=== PATIENT | male | born 1945 | race Caucasian/White ===

== ENCOUNTER 2018-09-15 15:32 | Inpatient (IN) | payer MEDICARE, OTHER ==
[~2018-09-15] VITALS: Ht 165.1 cm; Wt 92.0 kg
[2018-09-15 15:44] VITALS: Ht 165.1 cm; Wt 92.0 kg
[2018-09-15] MEDS ORDERED: ALBUTEROL 0.5% (NEB) 2.5 MG/0.5 ML AMP INH STA (15:45)
[2018-09-15] MEDS ORDERED: IPRATROPIUM (NEB) 0.5 MG/2.5 ML AMP INH STA (15:45)
[2018-09-15] MEDS ORDERED: ASPIRIN 81 MG TAB PO STA (15:45)
[2018-09-15] MEDS ORDERED: TAMS-14 PO (15:59)
[2018-09-15] MEDS ORDERED: LISI40TA3 PO (15:59)
[2018-09-15] MEDS ORDERED: SITA100T11 PO (16:00)
[2018-09-15] MEDS ORDERED: VENL50TA2 PO (16:01)
[2018-09-15] MEDS ORDERED: FURO20TA3 PO (16:01)
[2018-09-15] MEDS ORDERED: ATOR20TA38 PO (16:01)
[2018-09-15] MEDS ORDERED: LEVA15HF6 INH (16:02)
--- NOTE | 2018-09-15 17:25 | ERD ---
ER Documentation Chief Complaint Chief Complaint SOB HPI This is a 72-year-old male with a known history of congestive heart failure on 40 mg of Lasix on a daily basis. The patient indicates that just prior to arrival he developed severe difficulty breathing and shortness of breath. He denies any recent fever shaking or chills. He denies a cough. When EMS arrived he also started to complain of chest pressure. He stated the chest pressure was on the left side of his chest and did not radiate to his left arm but not to his neck back or jaw. They administered nitroglycerin and 162 mg of aspirin which she stated improved his chest pressure. EMS stated patient was in severe respiratory distress hypoxic at 80%. They placed the patient on a CPAP. The patient indicates he has been intubated in the past and had multiple previous hospital admissions for severe CHF exacerbations. Patient denies tobacco use. ROS All systems reviewed and are negative except as per history of present illness. Medications Home Meds Reported Medications Levalbuterol* (Xopenex* HFA) 15 Gm Inha, 2 PUFFS INH Q4H PRN for WHEEZING AND SOB, INHALER 09/15/18 Atorvastatin Calcium* (Atorvastatin Calcium*) 20 Mg Tablet, 20 MG PO QHS, #30 TAB 09/15/18 Furosemide* (Furosemide*) 20 Mg Tablet, 20 MG PO DAILY, #60 TAB 09/15/18 Venlafaxine Hcl* (Venlafaxine Hcl*) 50 Mg Tablet, 50 MG PO DAILY, TAB 09/15/18 Sitagliptin* (Januvia*) 100 Mg Tablet, 100 MG PO DAILY, #30 TAB 09/15/18 Lisinopril* (Lisinopril*) 40 Mg Tablet, 40 MG PO DAILY, #30 TAB 09/15/18 Tamsulosin Hcl* (Flomax*) 0.4 Mg Cap.er.24h, 0.4 MG PO DAILY, CAP 09/15/18 Allergies Allergies: Coded Allergies: Sulfa (Sulfonamide Antibiotics) (Verified Allergy, Unknown, 09/15/18) PMhx/Soc History of Surgery: Yes (ABD-BLADDER, KNEE) Anesthesia Reaction: No Hx Neurological Disorder: No Hx Respiratory Disorders: Yes (COPD) Hx Cardiac Disorders: Yes (CHF, HTN) Hx Psychiatric Problems: No Hx Miscellaneous Medical Probl: No Hx Alcohol Use: No Hx Substance Use: No Hx Tobacco Use: No Smoking Status: Former smoker Physical Exam Vitals Vital Signs Date Temp Pulse Resp B/P (MAP) Pulse Ox O2 O2 Flow FiO2 Time Delivery Rate 09/15/18 85 98 35 16:00 09/15/18 85 28 16:00 09/15/18 98.6 90 17 143/109 98 15:44 (120) Physical Exam Constitutional:Well-developed. Well-nourished. Patient in severe respiratory distress. HEENT:Normocephalic. Atraumatic.Pupils were equal round reactive to light. Moist mucous membranes.No tonsillar exudates. Neck: No nuchal rigidity. No lymphadenopathy. No posterior cervical spine tenderness or step-offs. Respiratory: Patient using accessory muscles of respiration. Unable to speak more than 2 words at a time before becoming short of breath. Bilateral rhonchi. Cardiovascular: Tachycardic with regular rhythm.No murmurs. No rubs were appreciated.S1, S2 normal. Distal pulses are palpable 2+ bilaterally. GI: Abdomen was soft. Nontender. Non Distended. No pulsatile abdominal masses or bruits. No rebound. No guarding. Bowel sounds were present and normal. Muscle skeletal: Full range of motion of both the upper and lower extremities bilaterally.Normal muscle tone.No assymetrical calf tenderness or swelling. Skin: No petechia, no purpura. No lesions on the palms or the soles of the feet. Neuro: Patient was alert and awake x3. No facial droop. Gait not observed as patient was in severe respiratory distress.Speech had regular rate and rhythm. No focal neurological deficits. Result Diagram: 09/15/18 1603 09/15/18 1603 Results 24 hrs Laboratory Tests Test 09/15/18 15:58 09/15/18 16:03 09/15/18 16:05 Bedside Glucose 172 mg/dL White Blood Count 8.3 10^3/ul Red Blood Count 5.05 10^6/ul Hemoglobin 14.3 g/dl Hematocrit 41.8 % Mean Corpuscular Volume 82.8 fl Mean Corpuscular Hemoglobin 28.3 pg Mean Corpuscular Hemoglobin Concent 34.2 g/dl Red Cell Distribution Width 13.5 % Platelet Count 220 10^3/UL Mean Platelet Volume 9.6 fl Immature Granulocytes % 0.500 % Neutrophils % 62.4 % Lymphocytes % 16.8 % Monocytes % 10.7 % Eosinophils % 9.1 % Basophils % 0.5 % Nucleated Red Blood Cells % 0.0 /100WBC Immature Granulocytes # 0.040 10^3/ul Neutrophils # 5.2 10^3/ul Lymphocytes # 1.4 10^3/ul Monocytes # 0.9 10^3/ul Eosinophils # 0.8 10^3/ul Basophils # 0.0 10^3/ul Nucleated Red Blood Cells # 0.0 10^3/ul Prothrombin Time 13.2 Sec Prothrombin Time Ratio 1.0 INR International Normalized Ratio 0.99 Activated Partial Thromboplast Time 30.9 Sec Sodium Level 138 mmol/L Potassium Level 3.2 mmol/L Chloride Level 105 mmol/L Carbon Dioxide Level 27 mmol/L Anion Gap 6 Blood Urea Nitrogen 16 mg/dl Creatinine 1.03 mg/dl Est Glomerular Filtrat Rate mL/min > 60 mL/min Glucose Level 181 mg/dl Calcium Level 8.7 mg/dl Total Bilirubin 1.4 mg/dl Direct Bilirubin 0.00 mg/dl Indirect Bilirubin 1.4 mg/dl Aspartate Amino Transf (AST/SGOT) 33 IU/L Alanine Aminotransferase (ALT/SGPT) 29 IU/L Alkaline Phosphatase 111 IU/L Creatine Kinase 153 IU/L Creatine Kinase Index 0.9 Creatinine Kinase MB (Mass) 1.34 ng/ml Troponin I < 0.012 ng/ml B-Type Natriuretic Peptide 320 PG/ML Total Protein 7.1 g/dl Albumin 3.9 g/dl Globulin 3.20 g/dl Albumin/Globulin Ratio 1.21 Amylase Level 89 U/L Lipase 126 U/L POC Venous Lactate 1.2 mmol/L Current Medications Medications Dose Sig/Dannielle Start Time Status Last (Trade) Ordered Route PRN Stop Time Admin Dose Reason Admin Aspirin 162 mg ONCE STAT 09/15/18 DC 09/15/18 (Aspirin) PO 15:45 09/15/18 16:54 15:49 Albuterol 10 mg ONCE STAT 09/15/18 DC 09/15/18 (Proventil INH 15:45 09/15/18 16:09 0.5% (Neb)) 15:49 Ipratropium 1 mg ONCE STAT 09/15/18 DC 09/15/18 [place] INH 15:45 09/15/18 16:09 (Atrovent 15:49 0.02% (Neb)) Furosemide 40 mg ONCE ONCE 09/15/18 (Lasix) IV 17:30 09/15/18 17:31 Procedures/MDM The patient presented to the emergency department with shortness of breath. My differential diagnosis included but was not limited to upper airway obstruction, CHF, pulmonary embolism, cardiac ischemia, pneumonia, pneumothorax, anemia, drug overdose, pulmonary edema, COPD or asthma. The patient was immediately placed on a BiPAP with noninvasive mechanical ventilation due to his severe respiratory distress. He was given continuous nebulizer treatments of albuterol and Atrovent. Chest radiograph was ordered and reviewed by myself and the radiologist and indicate the followin. No evidence for acute cardiopulmonary disease. 2. Mild cardiomegaly with central pulmonary vascular congestion. No evidence of interstitial pulmonary edema. 3. Mild atherosclerotic calcification of the thoracic aorta. The patient's clinical exam did appear to be a result of congestive heart failure exacerbation. The patient's BNP was elevated 302. Patient received IV Lasix. The patient also was complaining of chest pain and pressure. He received a spirin and nitroglycerin in route. His chest pain had resolved. He did receive another 162 mg of aspirin. He will be admitted for serial twelve-lead EKG tracings and cardiac set of enzymes to the hospitalist. 12 Lead EKG tracing ordered and reviewed by myself showed: Normal sinus rhythm of 100 bpm and no arrhythmia. VT interval normal. QRS duration normal. No ST segment elevation. Frequent PVCs . left axis deviation. No ST segment depression. No changes consistent with acute ischemia. The patient had significant improvement of his respiratory distress. He is no longer using accessory muscles of respiration. The patient no risk factors for pulmonary embolism. Critical Care: Time: 65 minutes Treatments/Evaluations: Close monitoring and treatment of unstable vital signs, cardiorespiratory, and neurologic status, while maintaining tight balance of fluid, respiratory, and cardiac interventions. Time does not include performing any of the above billable procedures. Departure Diagnosis: Primary Impression: CHF (congestive heart failure) Heart failure type: systolic Heart failure chronicity: acute on chronic Qualified Codes: I50.23 - Acute on chronic systolic (congestive) heart failure Additional Impression: Chest pain Chest pain type: unspecified Qualified Codes: R07.9 - Chest pain, unspecified Condition: Serious JONN STEINER MD Sep 15, 2018 17:25
[2018-09-15] MEDS ORDERED: ACETAMINOPHEN 325 MG TAB PO PRN ×2 (17:30→20:00)
[2018-09-15] MEDS ORDERED: FUROSEMIDE 40 MG INJ IV ONE (17:30)
[2018-09-15] MEDS ORDERED: ONDANSETRON 4 MG INJ IV PRN ×2 (17:30→20:00)
[2018-09-15] MEDS ORDERED: ALBUTEROL/IPRATROPIUM (NEB) 3 ML AMP HHN STA (19:46)
[2018-09-15] MEDS ORDERED: POTASSIUM CHLORIDE (SR) 20 MEQ TAB PO STA (19:46)
--- NOTE | 2018-09-15 19:46 | HP ---
Date/Time of Note Date/Time of Note DATE: 09/15/18 TIME: 19:40 Assessment/Plan VTE Prophylaxis Pharmacological prophylaxis: LMWH Lines/Catheters IV Catheter [facility]from [facility]): [facility] Assessment/Plan Hospital Course 1. Acute on chronic hypoxemic respiratory failure secondary to asthma exacerbation and mild decompensated CHF Steroids and breathing treatments Patient uses only rescue inhalers and will likely need long-acting beta agonist and inhaled steroids upon DC Pulmonology consultation Lasix IV 2. History of CHF with mild decompensation 2D echo Continue home meds including Lasix 3. History of diabetes Hold home Januvia Scheduled insulin sliding scale Follow-up in A1c 4. Hypertension Continue home meds 5. BPH Continue home Flomax 6. Dyslipidemia Continue statin 7. Hypokalemia Replete 8. Morbid obesity Lifestyle changes Prophylaxis: Lovenox Result Diagram: 09/15/18 1603 09/15/18 1603 Results 24hrs Laboratory Tests Test 09/15/18 15:58 09/15/18 16:03 09/15/18 16:05 Bedside Glucose 172 White Blood Count 8.3 Red Blood Count 5.05 Hemoglobin 14.3 Hematocrit 41.8 L Mean Corpuscular Volume 82.8 Mean Corpuscular Hemoglobin 28.3 L Mean Corpuscular Hemoglobin Concent 34.2 Red Cell Distribution Width 13.5 Platelet Count 220 Mean Platelet Volume 9.6 Immature Granulocytes % 0.500 H Neutrophils % 62.4 Lymphocytes % 16.8 Monocytes % 10.7 Eosinophils % 9.1 H Basophils % 0.5 Nucleated Red Blood Cells % 0.0 Immature Granulocytes # 0.040 H Neutrophils # 5.2 Lymphocytes # 1.4 Monocytes # 0.9 Eosinophils # 0.8 H Basophils # 0.0 Nucleated Red Blood Cells # 0.0 Prothrombin Time 13.2 Prothrombin Time Ratio 1.0 INR International Normalized Ratio 0.99 Activated Partial Thromboplast Time 30.9 Sodium Level 138 Potassium Level 3.2 L Chloride Level 105 Carbon Dioxide Level 27 Anion Gap 6 Blood Urea Nitrogen 16 Creatinine 1.03 Est Glomerular Filtrat Rate mL/min > 60 Glucose Level 181 Calcium Level 8.7 Total Bilirubin 1.4 H Direct Bilirubin 0.00 Indirect Bilirubin 1.4 H Aspartate Amino Transf (AST/SGOT) 33 Alanine Aminotransferase (ALT/SGPT) 29 Alkaline Phosphatase 111 Creatine Kinase 153 Creatine Kinase Index 0.9 Creatinine Kinase MB (Mass) 1.34 Troponin I < 0.012 B-Type Natriuretic Peptide 320 H Total Protein 7.1 Albumin 3.9 Globulin 3.20 Albumin/Globulin Ratio 1.21 Amylase Level 89 Lipase 126 POC Venous Lactate 1.2 HPI/ROS Admit Date/Time Admit Date/Time September 15, 2018 Hx of Present Illness Patient is a 9-year-old male with a history of obesity, [id number] diabetes, CHF, hypertension, dyslipidemia, BPH and asthma. Patient uses albuterol rescue for his asthma, patient presents with worsening shortness of breath, patient was brought in by paramedics and was placed on BiPAP. Patient reports compliance with his medications, in the ED chest x-ray showed only pulmonary congestion and mild elevation of BNP. Patient has no other complaints at this time. ROS Constitutional: no complaints, improved Eyes: no complaints ENT: no complaints Respiratory: shortness of breath Cardiovascular: no complaints Gastrointestinal: no complaints Genitourinary: no complaints Musculoskeletal: no complaints Skin: no complaints Neurologic: no complaints Endocrine: no complaints Lymphatic: no complaints Psychological: no complaints, nl mood/affect Immunologic: no complaints PMH/Family/Social Past Medical History As per HPI Medications Current Medications Ondansetron HCl (Zofran Inj) 4 mg ER BRIDGE PRN IV NAUSEA/VOMITING; Start 09/15/18 at 17:30; Stop 09/16/18 at 17:29 Acetaminophen (Tylenol Tab) 650 mg ER BRIDGE PRN PO .MILD PAIN 1-3 OR TEMP; Start 09/15/18 at 17:30; Stop 09/16/18 at 17:29 Coded Allergies: Sulfa (Sulfonamide Antibiotics) (Verified Allergy, Unknown, 09/15/18) Family History Significant Family History: no pertinent family hx Social History Alcohol Use: rarely Smoking Status: Former smoker Drug Use: none Exam/Review of Systems Vital Signs Vitals Vital Signs Date Temp Pulse Resp B/P (MAP) Pulse Ox O2 O2 Flow FiO2 Time Delivery Rate 09/15/18 92 100 35 19:14 09/15/18 98.6 24 144/71 BIPAP 17:15 (95) Exam Constitutional: alert, oriented Respiratory: wheezing Cardiovascular: regular rate and rhythm Gastrointestinal: soft; No distended Musculoskeletal: nl extremities to inspection MINERVA STANFORD Sep 15, 2018 19:46
[2018-09-15] MEDS ORDERED: NACL 0.9% 3 ML SYG IV SCH (20:00)
[2018-09-15] MEDS ORDERED: INSULIN GLARGINE [LANTus] (100 UNITS/ML) SYG SC SCH (20:00)
[2018-09-15] MEDS ORDERED: DOCUSATE SODIUM 100 MG CAP PO PRN (20:00)
[2018-09-15] MEDS ORDERED: GLUCOSE GEL 15 GRAM TUBE PO PRN ×2 (20:30)
[2018-09-15] MEDS ORDERED: GLUCOSE GEL 15 GRAM TUBE BUCCAL PRN (20:30)
[2018-09-15] MEDS ORDERED: DEXTROSE 50% 50 ML SYRINGE IV PRN ×2 (20:30)
[2018-09-15] MEDS ORDERED: GLUCAGON 1 MG INJ IM PRN (20:30)
[2018-09-15] MEDS: INSULIN ASPART [NOVOLOG] 3 ML PEN SC SCH (21:00)
[2018-09-15] MEDS: ATORVASTATIN 20 MG TAB PO SCH (21:19)
[2018-09-15] MEDS: METHYLPREDNISOLONE 125 MG INJ IV SCH ×2 (21:21→23:12)
[2018-09-15] MEDS: ZOLPIDEM 5 MG TAB PO PRN (23:08)
[2018-09-16] VITALS (14 sets, daily range): BP systolic 114–138; BP diastolic 67–86; PULSE 88–115; RESP 18–23
[2018-09-16] MEDS: ACCU-CHEK XX SCH (02:45)
[2018-09-16] MEDS: ALBUTEROL/IPRATROPIUM (NEB) 3 ML AMP HHN PRN ×4 (03:07→15:54)
[2018-09-16] MEDS ORDERED: INSULIN ASPART [NOVOLOG] 3 ML PEN SC ONE (03:30)
[2018-09-16] MEDS ORDERED: ACCU-CHEK XX ONE (05:30)
[2018-09-16] MEDS: METHYLPREDNISOLONE 125 MG INJ IV SCH (06:22)
[2018-09-16] MEDS ORDERED: INSULIN ASPART [NOVOLOG] 3 ML PEN SC SCH (07:55)
[2018-09-16] MEDS: LISINOPRIL 20 MG TAB PO SCH (08:10)
[2018-09-16] MEDS: TAMSULOSIN (SR) 0.4 MG CAP PO SCH (08:10)
[2018-09-16] MEDS: ENOXAPARIN 40 MG/0.4 ML SYG SC SCH (08:19)
[2018-09-16] MEDS: INSULIN ASPART [NOVOLOG] 3 ML PEN SC SCH ×6 (08:19→21:55)
[2018-09-16] MEDS: VENLAFAXINE 25 MG TAB PO SCH (09:00)
[2018-09-16] MEDS ORDERED: FUROSEMIDE 40 MG INJ IV SCH (09:00)
[2018-09-16] MEDS: BUDESONIDE (NEB) 0.5MG/2ML AMP HHN SCH ×2 (09:30→21:07)
--- NOTE | 2018-09-16 11:40 | CONS ---
Assessment/Plan Assessment/Plan Assessment/Plan (Daily) Chest x-ray is essentially clear. ABG also is within normal limits. Assessment and recommendations; 1. Patient with history of poorly controlled asthma admitted with exacerbation. 2. History of diabetes and hypertension. 3. Possibly underlying sleep apnea. Continue current supportive care. Add DuoNeb 4 times daily. Add Zithromax orally. Continue Solu-Medrol at current dosing as well. Patient will need to have a long-acting bronchodilator in conjunction with inhaled steroid on a regular basis as outpatient. Also will need to have a sleep study done. Consultation Date/Type/Reason Admit Date/Time September 15, 2018 Date of Consultation: Sep 16, 2018 Type of Consult Pulmonary Patient is a pleasant 72-year-old gentleman who came into the hospital with a few days history of increased wheezing, coughing, production of white-yellow sputum. Upon evaluation patient has been diagnosed with asthma exacerbation and treated with appropriate modality regimen. Patient is reporting some improvement since admission. Patient does complain of chronic symptoms of asthma which apparently is poorly controlled on an outpatient basis. He does complain of frequent flareups as well. Patient however denies any high fever, chills, body aches or myalgias and also denies any sinus symptoms. Past medical history; 1. Asthma 2. Diabetes and hypertension. Medications; reviewed. Allergies; sulfa drugs. Social history; noncontributory. Family history; he is single, he does not have any children. No show any asthma in the family. Occupational history; patient is on disability. Review of systems; denies any headache, seizures, sinus symptoms. Any dysphagia. Any chest pain or angina. Complains of cough with wheezing as well as mild dyspnea on exertion. Denies any abdominal pain, nausea vomiting. Any melena or hematochezia. Any urinary symptoms. Denies any weight gain. Denies any orthopnea. Complains of occasional snoring and daytime sleepiness. General exam; elderly male, looks younger than age. Currently no distress. Laying comfortably in bed. Date/Time of Note DATE: 09/16/18 TIME: 11:37 Past Medical History Home Meds Reported Medications Levalbuterol* (Xopenex* HFA) 15 Gm Inha, 2 PUFFS INH Q4H PRN for WHEEZING AND SOB, INHALER 09/15/18 Atorvastatin Calcium* (Atorvastatin Calcium*) 20 Mg Tablet, 20 MG PO QHS, #30 TAB 09/15/18 Furosemide* (Furosemide*) 20 Mg Tablet, 20 MG PO DAILY, #60 TAB 09/15/18 Venlafaxine Hcl* (Venlafaxine Hcl*) 50 Mg Tablet, 50 MG PO DAILY, TAB 09/15/18 Sitagliptin* (Januvia*) 100 Mg Tablet, 100 MG PO DAILY, #30 TAB 09/15/18 Lisinopril* (Lisinopril*) 40 Mg Tablet, 40 MG PO DAILY, #30 TAB 09/15/18 Tamsulosin Hcl* (Flomax*) 0.4 Mg Cap.er.24h, 0.4 MG PO DAILY, CAP 09/15/18 Medications Current Medications IV Flush (NS 3 ml) 3 ml PER PROTOCOL IV ; Start 09/15/18 at 20:00 Ondansetron HCl (Zofran Inj) 4 mg Q6H PRN IV NAUSEA/VOMITING; Start 09/15/18 at 20:00 Acetaminophen (Tylenol Tab) 650 mg Q6H PRN PO .PAIN 1-3 OR TEMP; Start 09/15/18 at 20:00 Acetaminophen/ Hydrocodone Bitart (Valier (5/325)) 1 tab Q6H PRN PO .MOD PAIN 4- 6; Start 09/15/18 at 20:00 Morphine Sulfate (morphine) 2 mg Q4H PRN IV .SEVERE PAIN 7-10; Start 09/15/18 at 20:00 Docusate Sodium (Colace) 100 mg Q12H PRN PO .CONSTIPATION; Start 09/15/18 at 20:00 Zolpidem Tartrate (Ambien) 5 mg QHS PRN PO .INSOMNIA Last administered on 09/15/18at 23:08; Admin Dose 5 MG; Start 09/15/18 at 20:00 Enoxaparin Sodium (Lovenox) 40 mg DAILY SC Last administered on 09/16/18at 08:19; Admin Dose 40 MG; Start 09/16/18 at 09:00 Albuterol/ Ipratropium (Duoneb) 3 ml Q4H RESP THERAPY PRN HHN SHORTNESS OF BREATH Last administered on 09/16/18at 08:32; Admin Dose 3 ML; Start 09/15/18 at 20:00 Atorvastatin Calcium (Lipitor) 20 mg QHS PO Last administered on 09/15/18at 21:19; Admin Dose 20 MG; Start 09/15/18 at 21:00 Lisinopril (Zestril) 40 mg DAILY PO Last administered on 09/16/18at 08:10; Admin Dose 40 MG; Start 09/16/18 at 09:00 Tamsulosin HCl (Flomax) 0.4 mg DAILY PO Last administered on 09/16/18at 08:10; Admin Dose 0.4 MG; Start 09/16/18 at 09:00 Venlafaxine HCl (Effexor) 50 mg DAILY PO ; Start 09/16/18 at 09:00 Diagnostic Test (Pha) (Accu-Chek) 1 ea 02 XX Last administered on 09/16/18at 02:45; Admin Dose 1 EA; Start 09/16/18 at 02:00 Insulin Aspart (Novolog Insulin Pen) NOVOLOG *MILD* ALGORITHM WITH MEALS BEDTIME SC Last administered on 09/16/18at 08:19; Admin Dose 3 UNIT; Start 09/15/18 at 21:00 Miscellaneous Information 1 ea NOTE XX ; Start 09/15/18 at 20:30 Glucose (Glutose) 15 gm Q15M PRN PO DECREASED GLUCOSE; Start 09/15/18 at 20:30 Glucose (Glutose) 22.5 gm Q15M PRN PO DECREASED GLUCOSE; Start 09/15/18 at 20:30 Dextrose (D50w Syringe) 25 ml Q15M PRN IV DECREASED GLUCOSE; Start 09/15/18 at 20:30 Dextrose (D50w Syringe) 50 ml Q15M PRN IV DECREASED GLUCOSE; Start 09/15/18 at 20:30 Glucagon (Glucagen) 1 mg Q15M PRN IM DECREASED GLUCOSE; Start 09/15/18 at 20:30 Glucose (Glutose) 15 gm Q15M PRN BUCCAL DECREASED GLUCOSE; Start 09/15/18 at 20:30 Insulin Aspart (Novolog Insulin Pen) 9 unit WITH MEALS SC ; Start 09/16/18 at 11:50 Methylprednisolone Sodium Succinate (Solu-Medrol) 40 mg Q8 IV ; Start 09/16/18 at 14:00 Budesonide (Pulmicort (Neb)) 0.5 mg BID RESP THERAPY HHN ; Start 09/16/18 at 09:30 Insulin Glargine (Lantus) 20 units DAILY@2000 SC ; Start 09/16/18 at 20:00 Albuterol/ Ipratropium (Duoneb) 3 ml Q6HWA RESP THERAPY HHN ; Start 09/16/18 at 14:00; Status UNV Allergies: Coded Allergies: Sulfa (Sulfonamide Antibiotics) (Verified Allergy, Unknown, 09/15/18) Social History Alcohol Use: rarely Smoking Status: Former smoker Drug Use: none Exam/Review of Systems Exam Vitals Vital Signs Date Temp Pulse Resp B/P (MAP) Pulse Ox O2 O2 Flow FiO2 Time Delivery Rate 09/16/18 3.0 08:34 09/16/18 110 22 99 Nasal 32 08:32 Cannula 09/16/18 98.5 121/72 07:12 (88) Intake and Output 09/15/18 09/15/18 09/16/18 1515:00 23:00 07:00 IntakeIntake Total 500 ml OutputOutput Total 150 ml BalanceBalance -150 ml 500 ml Exam H EENT exam; supple neck, no JVD. No lymphadenopathy. Midline trachea. No thyromegaly. No neck masses. Chest exam; bilateral wheezing. S1-S2 audible, no murmurs. Regular rhythm. Abdomen exam; protuberant. Nontender. No organomegaly. Bowel sounds audible. There is a very small umbilical hernia present. Extremity exam; peripheral edema clubbing. INFORMATICS COORDINATOR exam; no focal deficit. Results Result Diagram: 09/16/18 0544 09/16/18 0545 Results 24hrs Laboratory Tests Test 09/15/18 15:58 09/15/18 16:03 09/15/18 16:05 09/15/18 19:15 Bedside Glucose 172 White Blood 8.3 Count Red Blood Count 5.05 Hemoglobin 14.3 Hematocrit 41.8 L Mean Corpuscular 82.8 Volume Mean Corpuscular 28.3 L Hemoglobin Mean Corpuscular 34.2 Hemoglobin Radha nt Red Cell 13.5 Distribution Width Platelet Count 220 Mean Platelet 9.6 Volume Immature 0.500 H Granulocytes % Neutrophils % 62.4 Lymphocytes % 16.8 Monocytes % 10.7 Eosinophils % 9.1 H Basophils % 0.5 Nucleated Red 0.0 Blood Cells % Immature 0.040 H Granulocytes # Neutrophils # 5.2 Lymphocytes # 1.4 Monocytes # 0.9 Eosinophils # 0.8 H Basophils # 0.0 Nucleated Red 0.0 Blood Cells # Prothrombin Time 13.2 Prothrombin Time 1.0 Ratio INR 0.99 International Normalized Ratio Activated 30.9 Partial Thrombop last Time Sodium Level 138 Potassium Level 3.2 L Chloride Level 105 Carbon Dioxide 27 Level Anion Gap 6 Blood Urea 16 Nitrogen Creatinine 1.03 Est Glomerular > 60 Filtrat Rate mL/min Glucose Level 181 Calcium Level 8.7 Total Bilirubin 1.4 H Direct Bilirubin 0.00 Indirect 1.4 H Bilirubin Aspartate Amino 33 Transf (AST/SGOT ) Alanine 29 Aminotransferase (ALT/SGPT) Alkaline 111 Phosphatase Creatine Kinase 153 Creatine Kinase 0.9 Index Creatinine 1.34 Kinase MB (Mass) Troponin I < 0.012 B-Type 320 H Natriuretic Peptide Total Protein 7.1 Albumin 3.9 Globulin 3.20 Albumin/Globulin 1.21 Ratio Amylase Level 89 Lipase 126 POC Venous 1.2 Lactate Urine Color YELLOW Urine Clarity CLEAR Urine pH 5.0 Urine Specific 1.018 [place] Urine Ketones NEGATIVE Urine Nitrite NEGATIVE Urine Bilirubin NEGATIVE Urine NEGATIVE Urobilinogen Urine Leukocyte NEGATIVE Esterase Urine Hemoglobin NEGATIVE Urine Glucose NEGATIVE Urine Total NEGATIVE Protein Test 09/15/18 21:00 09/15/18 21:14 09/15/18 23:17 09/16/18 02:53 Blood Gas Blood arterial Specimen Source Arterial Blood 09/15/2018 8:30:12 Date Drawn PM Arterial Blood 7.413 pH (Temp corrected) Arterial Blood 43.6 pCO2 (Temp correct) Arterial Blood 103.3 H pO2 (Temp corrected) Arterial Blood 27.2 H HCO3 Arterial Blood 2.2 Base Excess Arterial Blood 97.9 Oxygen Saturatio n Barry Test ACCEPTAB Arterial Blood Right Radial Gas Puncture Site Arterial 0.8 Blood Carboxyhem oglobin Arterial Blood 0.5 Methemoglobin Blood Gas A-a O2 73.9 H Differential Oxyhemoglobin 96.6 Percent Blood Gas 37.0 Temperature Blood Gas Actual 21 Respiration Rate Blood Gas NASAL CANNULA Modality FiO2 32.0 Blood Gas KB Notified Whom Blood Gas 09/15/2018 8:42:42 Notified Time PM Lactic Acid 1.4 1.5 Level Bedside Glucose 125 259 H Test 09/16/18 05:44 09/16/18 05:45 09/16/18 06:00 09/16/18 06:20 White Blood 10.9 #H Count Red Blood Count 5.23 Hemoglobin 14.7 Hematocrit 44.0 Mean Corpuscular 84.1 Volume Mean Corpuscular 28.1 L Hemoglobin Mean Corpuscular 33.4 Hemoglobin Radha nt Red Cell 13.7 Distribution Width Platelet Count 255 Mean Platelet 9.7 Volume Immature 0.600 H Granulocytes % Neutrophils % Segmented 90 H Neutrophils % (Manual) Band Neutrophils 3 % (Manual) Lymphocytes % Lymphocytes % 5 L (Manual) Monocytes % Monocytes % 1 (Manual) Eosinophils % Basophils % Basophils % 1 (Manual) Nucleated Red 0.0 Blood Cells % Immature 0.070 H Granulocytes # Neutrophils # Neutrophils # 9.8 H (Manual) Band Neutrophils 0.3 # Lymphocytes 0.5 L (Manual) Lymphocytes # Monocytes # Monocytes # 0.1 L (Manual) Eosinophils # Basophils # Basophils # 0.1 H (Manual) Nucleated Red Blood Cells # Platelet NORMAL Estimate Poikilocytosis 2+ Anisocytosis 1+ Microcytosis 1+ Hemoglobin A1c 6.3 H Sodium Level 142 Potassium Level 3.6 Chloride Level 104 Carbon Dioxide 26 Level Anion Gap 12 Blood Urea 20 Nitrogen Creatinine 1.26 H Est Glomerular 57 L Filtrat Rate mL/min Glucose Level 290 #H Calcium Level 9.2 Phosphorus Level 2.4 L Magnesium Level 1.9 Triglycerides 72 Level Cholesterol 130 Level LDL Cholesterol, 76 Calculated HDL Cholesterol 40 Cholesterol/HDL 3.2 Ratio Blood Gas Blood arterial Specimen Source Arterial Blood 09/16/2018 6:05:53 Date Drawn AM Arterial Blood 7.365 pH (Temp corrected) Arterial Blood 41.4 pCO2 (Temp correct) Arterial Blood 112.2 H pO2 (Temp corrected) Arterial Blood 23.1 HCO3 Arterial Blood -2.1 Base Excess Arterial Blood 98.0 Oxygen Saturatio n Barry Test ACCEPTAB Arterial Blood Right Radial Gas Puncture Site Arterial 0.1 Blood Carboxyhem oglobin Arterial Blood 0.5 Methemoglobin Blood Gas A-a O2 89.2 H Differential Oxyhemoglobin 97.4 Percent Blood Gas 37.0 Temperature Blood Gas 18.0 Respiration Rate Blood Gas Actual 20 Respiration Rate Blood Gas MASK - BIPAP Modality FiO2 35.0 Blood Gas 15/5 IPAP/EPAP Ratio Blood Gas GURPREET MARK Notified Whom Blood Gas 09/16/2018 6:17:39 Notified Time AM Bedside Glucose 283 H Test 09/16/18 08:03 Bedside Glucose 258 H Medications Medication Current Medications IV Flush (NS 3 ml) 3 ml PER PROTOCOL IV ; Start 09/15/18 at 20:00 Ondansetron HCl (Zofran Inj) 4 mg Q6H PRN IV NAUSEA/VOMITING; Start 09/15/18 at 20:00 Acetaminophen (Tylenol Tab) 650 mg Q6H PRN PO .PAIN 1-3 OR TEMP; Start 09/15/18 at 20:00 Acetaminophen/ Hydrocodone Bitart ([place]ier (5/325)) 1 tab Q6H PRN PO .MOD PAIN 4- 6; Start 09/15/18 at 20:00 Morphine Sulfate (morphine) 2 mg Q4H PRN IV .SEVERE PAIN 7-10; Start 09/15/18 at 20:00 Docusate Sodium (Colace) 100 mg Q12H PRN PO .CONSTIPATION; Start 09/15/18 at 20:00 Zolpidem Tartrate (Ambien) 5 mg QHS PRN PO .INSOMNIA Last administered on 09/15/18at 23:08; Admin Dose 5 MG; Start 09/15/18 at 20:00 Enoxaparin Sodium (Lovenox) 40 mg DAILY SC Last administered on 09/16/18at 08:19; Admin Dose 40 MG; Start 09/16/18 at 09:00 Albuterol/ Ipratropium (Duoneb) 3 ml Q4H RESP THERAPY PRN HHN SHORTNESS OF BREATH Last administered on 09/16/18at 08:32; Admin Dose 3 ML; Start 09/15/18 at 20:00 Atorvastatin Calcium (Lipitor) 20 mg QHS PO Last administered on 09/15/18at 21:19; Admin Dose 20 MG; Start 09/15/18 at 21:00 Lisinopril (Zestril) 40 mg DAILY PO Last administered on 09/16/18at 08:10; Admin Dose 40 MG; Start 09/16/18 at 09:00 Tamsulosin HCl (Flomax) 0.4 mg DAILY PO Last administered on 09/16/18 08:10; Admin Dose 0.4 MG; Start 09/16/18 at 09:00 Venlafaxine HCl (Effexor) 50 mg DAILY PO ; Start 09/16/18 at 09:00 Diagnostic Test (Pha) (Accu-Chek) 02 XX Last administered on 09/16/18at 02:45; Admin Dose 1 EA; Start 09/16/18 at 02:00 Insulin Aspart (Novolog Insulin Pen) NOVOLOG *MILD* ALGORITHM WITH MEALS BEDTIME SC Last administered on 09/16/18at 08:19; Admin Dose 3 UNIT; Start 09/15/18 at 21:00 Miscellaneous Information 1 ea NOTE XX ; Start 09/15/18 at 20:30 Glucose (Glutose) 15 gm Q15M PRN PO DECREASED GLUCOSE; Start 09/15/18 at 20:30 Glucose (Glutose) 22.5 gm Q15M PRN PO DECREASED GLUCOSE; Start 09/15/18 at 20:30 Dextrose (D50w Syringe) 25 ml Q15M PRN IV DECREASED GLUCOSE; Start 09/15/18 at 20:30 Dextrose (D50w Syringe) 50 ml Q15M PRN IV DECREASED GLUCOSE; Start 09/15/18 at 20:30 Glucagon (Glucagen) 1 mg Q15M PRN IM DECREASED GLUCOSE; Start 09/15/18 at 20:30 Glucose (Glutose) 15 gm Q15M PRN BUCCAL DECREASED GLUCOSE; Start 09/15/18 at 20:30 Insulin Aspart (Novolog Insulin Pen) 9 unit WITH MEALS SC ; Start 09/16/18 at 11:50 Methylprednisolone Sodium Succinate (Solu-Medrol) 40 mg Q8 IV ; Start 09/16/18 at 14:00 Budesonide (Pulmicort (Neb)) 0.5 mg BID RESP THERAPY HHN ; Start 09/16/18 at 09:30 Insulin Glargine (Lantus) 20 units DAILY@2000 SC ; Start 09/16/18 at 20:00 Albuterol/ Ipratropium (Duoneb) 3 ml Q6HWA RESP THERAPY HHN ; Start 09/16/18 at 14:00; Status SOTO MOYA Sep 16, 2018 11:40
[2018-09-16] MEDS ORDERED: AZITHROMYCIN 250 MG TAB PO SCH (12:00)
[2018-09-16] MEDS: ALBUTEROL/IPRATROPIUM (NEB) 3 ML AMP HHN SCH ×2 (13:03→21:07)
--- NOTE | 2018-09-16 13:07 | PN ---
Date/Time of Note Date/Time of Note DATE: 09/16/18 TIME: 13:01 Assessment/Plan VTE Prophylaxis Risk score (from Ns)>0 risk: 4 SCD applied (from Ns): Yes Pharmacological prophylaxis: LMWH Lines/Catheters IV Catheter Type (from Nrs): Saline Lock Urinary Cath still in place: No Assessment/Plan Hospital Course 1. Acute on chronic hypoxemic respiratory failure secondary to asthma exace rbation and mild decompensated CHF Continue steroids with taper down Continue breathing treatments and have added Pulmicort Patient uses only rescue inhalers and will likely need long-acting beta agonist and inhaled steroids upon DC Pulmonology consultation appreciated, Zithromax p.o. has been added Status post Lasix 40 mg IV, transition back to patient's home Lasix 20 mg daily starting tomorrow 2. History of CHF with mild decompensation Follow-up on 2D echo Status post Lasix IV, transition back to home Lasix 3. Diabetes A1c 6.3 Sugars are currently elevated secondary to steroids, tapering down steroid dose Increase scheduled basal and mealtime insulin, continue sliding scale Hold home Januvia 4. Hypertension Continue home meds 5. BPH Continue home Flomax 6. Dyslipidemia Continue statin 7. Hypokalemia Replete 8. Morbid obesity Lifestyle changes Prophylaxis: Lovenox DC planning: Not stable for DC with persistent wheezing Result Diagram: 09/16/18 0544 09/16/18 0545 Results 24hrs Laboratory Tests Test 09/15/18 15:58 09/15/18 16:03 09/15/18 16:05 09/15/18 19:15 Bedside Glucose 172 White Blood 8.3 Count Red Blood Count 5.05 Hemoglobin 14.3 Hematocrit 41.8 L Mean Corpuscular 82.8 Volume Mean Corpuscular 28.3 L Hemoglobin Mean Corpuscular 34.2 Hemoglobin Radha nt Red Cell 13.5 Distribution Width Platelet Count 220 Mean Platelet 9.6 Volume Immature 0.500 H Granulocytes % Neutrophils % 62.4 Lymphocytes % 16.8 Monocytes % 10.7 Eosinophils % 9.1 H Basophils % 0.5 Nucleated Red 0.0 Blood Cells % Immature 0.040 H Granulocytes # Neutrophils # 5.2 Lymphocytes # 1.4 Monocytes # 0.9 Eosinophils # 0.8 H Basophils # 0.0 Nucleated Red 0.0 Blood Cells # Prothrombin Time 13.2 Prothrombin Time 1.0 Ratio INR 0.99 International Normalized Ratio Activated 30.9 Partial Thrombop last Time Sodium Level 138 Potassium Level 3.2 L Chloride Level 105 Carbon Dioxide 27 Level Anion Gap 6 Blood Urea 16 Nitrogen Creatinine 1.03 Est Glomerular > 60 Filtrat Rate mL/min Glucose Level 181 Calcium Level 8.7 Total Bilirubin 1.4 H Direct Bilirubin 0.00 Indirect 1.4 H Bilirubin Aspartate Amino 33 Transf (AST/SGOT ) Alanine 29 Aminotransferase (ALT/SGPT) Alkaline 111 Phosphatase Creatine Kinase 153 Creatine Kinase 0.9 Index Creatinine 1.34 Kinase MB (Mass) Troponin I < 0.012 B-Type 320 H Natriuretic Peptide Total Protein 7.1 Albumin 3.9 Globulin 3.20 Albumin/Globulin 1.21 Ratio Amylase Level 89 Lipase 126 POC Venous 1.2 Lactate Urine Color YELLOW Urine Clarity CLEAR Urine pH 5.0 Urine Specific 1.018 [place] Urine Ketones NEGATIVE Urine Nitrite NEGATIVE Urine Bilirubin NEGATIVE Urine NEGATIVE Urobilinogen Urine Leukocyte NEGATIVE Esterase Urine Hemoglobin NEGATIVE Urine Glucose NEGATIVE Urine Total NEGATIVE Protein Test 09/15/18 21:00 09/15/18 21:14 09/15/18 23:17 09/16/18 02:53 Blood Gas Blood arterial Specimen Source Arterial Blood 09/15/2018 8:30:12 Date Drawn PM Arterial Blood 7.413 pH (Temp corrected) Arterial Blood 43.6 pCO2 (Temp correct) Arterial Blood 103.3 H pO2 (Temp corrected) Arterial Blood 27.2 H HCO3 Arterial Blood 2.2 Base Excess Arterial Blood 97.9 Oxygen Saturatio n Barry Test ACCEPTAB Arterial Blood Right Radial Gas Puncture Site Arterial 0.8 Blood Carboxyhem oglobin Arterial Blood 0.5 Methemoglobin Blood Gas A-a O2 73.9 H Differential Oxyhemoglobin 96.6 Percent Blood Gas 37.0 Temperature Blood Gas Actual 21 Respiration Rate Blood Gas NASAL CANNULA Modality FiO2 32.0 Blood Gas KB Notified Whom Blood Gas 09/15/2018 8:42:42 Notified Time PM Lactic Acid 1.4 1.5 Level Bedside Glucose 125 259 H Test 09/16/18 05:44 09/16/18 05:45 09/16/18 06:00 09/16/18 06:20 White Blood 10.9 #H Count Red Blood Count 5.23 Hemoglobin 14.7 Hematocrit 44.0 Mean Corpuscular 84.1 Volume Mean Corpuscular 28.1 L Hemoglobin Mean Corpuscular 33.4 Hemoglobin Radha nt Red Cell 13.7 Distribution Width Platelet Count 255 Mean Platelet 9.7 Volume Immature 0.600 H Granulocytes % Neutrophils % Segmented 90 H Neutrophils % (Manual) Band Neutrophils 3 % (Manual) Lymphocytes % Lymphocytes % 5 L (Manual) Monocytes % Monocytes % 1 (Manual) Eosinophils % Basophils % Basophils % 1 (Manual) Nucleated Red 0.0 Blood Cells % Immature 0.070 H Granulocytes # Neutrophils # Neutrophils # 9.8 H (Manual) Band Neutrophils 0.3 # Lymphocytes 0.5 L (Manual) Lymphocytes # Monocytes # Monocytes # 0.1 L (Manual) Eosinophils # Basophils # Basophils # 0.1 H (Manual) Nucleated Red Blood Cells # Platelet NORMAL Estimate Poikilocytosis 2+ Anisocytosis 1+ Microcytosis 1+ Hemoglobin A1c 6.3 H Sodium Level 142 Potassium Level 3.6 Chloride Level 104 Carbon Dioxide 26 Level Anion Gap 12 Blood Urea 20 Nitrogen Creatinine 1.26 H Est Glomerular 57 L Filtrat Rate mL/min Glucose Level 290 #H Calcium Level 9.2 Phosphorus Level 2.4 L Magnesium Level 1.9 Triglycerides 72 Level Cholesterol 130 Level LDL Cholesterol, 76 Calculated HDL Cholesterol 40 Cholesterol/HDL 3.2 Ratio Blood Gas Blood arterial Specimen Source Arterial Blood 09/16/2018 6:05:53 Date Drawn AM Arterial Blood 7.365 pH (Temp corrected) Arterial Blood 41.4 pCO2 (Temp correct) Arterial Blood 112.2 H pO2 (Temp corrected) Arterial Blood 23.1 HCO3 Arterial Blood -2.1 Base Excess Arterial Blood 98.0 Oxygen Saturatio n Barry Test ACCEPTAB Arterial Blood Right Radial Gas Puncture Site Arterial 0.1 Blood Carboxyhem oglobin Arterial Blood 0.5 Methemoglobin Blood Gas A-a O2 89.2 H Differential Oxyhemoglobin 97.4 Percent Blood Gas 37.0 Temperature Blood Gas 18.0 Respiration Rate Blood Gas Actual 20 Respiration Rate Blood Gas MASK - BIPAP Modality FiO2 35.0 Blood Gas 15/5 IPAP/EPAP Ratio Blood Gas GURPREET MARK Notified Whom Blood Gas 09/16/2018 6:17:39 Notified Time AM Bedside Glucose 283 H Test 09/16/18 08:03 09/16/18 11:36 Bedside Glucose 258 H 346 H Subjective 24 Hr Interval Summary Respiratory: shortness of breath Exam/Review of Systems Exam Vitals Vital Signs Date Temp Pulse Resp B/P (MAP) Pulse Ox O2 O2 Flow FiO2 Time Delivery Rate 09/16/18 103 12:38 09/16/18 97.1 20 129/78 92 11:51 (95) 09/16/18 3.0 08:34 09/16/18 Nasal 32 08:32 Cannula Intake and Output 09/15/18 09/15/18 09/16/18 1515:00 23:00 07:00 IntakeIntake Total 500 ml OutputOutput Total 150 ml BalanceBalance -150 ml 500 ml Constitutional: alert, oriented Respiratory: wheezing Cardiovascular: regular rate and rhythm Gastrointestinal: soft; No distended Musculoskeletal: nl extremities to inspection Results Results 24hrs Laboratory Tests Test 09/15/18 15:58 09/15/18 16:03 09/15/18 16:05 09/15/18 19:15 Bedside Glucose 172 White Blood 8.3 Count Red Blood Count 5.05 Hemoglobin 14.3 Hematocrit 41.8 L Mean Corpuscular 82.8 Volume Mean Corpuscular 28.3 L Hemoglobin Mean Corpuscular 34.2 Hemoglobin Radha nt Red Cell 13.5 Distribution Width Platelet Count 220 Mean Platelet 9.6 Volume Immature 0.500 H Granulocytes % Neutrophils % 62.4 Lymphocytes % 16.8 Monocytes % 10.7 Eosinophils % 9.1 H Basophils % 0.5 Nucleated Red 0.0 Blood Cells % Immature 0.040 H Granulocytes # Neutrophils # 5.2 Lymphocytes # 1.4 Monocytes # 0.9 Eosinophils # 0.8 H Basophils # 0.0 Nucleated Red 0.0 Blood Cells # Prothrombin Time 13.2 Prothrombin Time 1.0 Ratio INR 0.99 International Normalized Ratio Activated 30.9 Partial Thrombop last Time Sodium Level 138 Potassium Level 3.2 L Chloride Level 105 Carbon Dioxide 27 Level Anion Gap 6 Blood Urea 16 Nitrogen Creatinine 1.03 Est Glomerular > 60 Filtrat Rate mL/min Glucose Level 181 Calcium Level 8.7 Total Bilirubin 1.4 H Direct Bilirubin 0.00 Indirect 1.4 H Bilirubin Aspartate Amino 33 Transf (AST/SGOT ) Alanine 29 Aminotransferase (ALT/SGPT) Alkaline 111 Phosphatase Creatine Kinase 153 Creatine Kinase 0.9 Index Creatinine 1.34 Kinase MB (Mass) Troponin I < 0.012 B-Type 320 H Natriuretic Peptide Total Protein 7.1 Albumin 3.9 Globulin 3.20 Albumin/Globulin 1.21 Ratio Amylase Level 89 Lipase 126 POC Venous 1.2 Lactate Urine Color YELLOW Urine Clarity CLEAR Urine pH 5.0 Urine Specific 1.018 [place] Urine Ketones NEGATIVE Urine Nitrite NEGATIVE Urine Bilirubin NEGATIVE Urine NEGATIVE Urobilinogen Urine Leukocyte NEGATIVE Esterase Urine Hemoglobin NEGATIVE Urine Glucose NEGATIVE Urine Total NEGATIVE Protein Test 09/15/18 21:00 09/15/18 21:14 09/15/18 23:17 09/16/18 02:53 Blood Gas Blood arterial Specimen Source Arterial Blood 09/15/2018 8:30:12 Date Drawn PM Arterial Blood 7.413 pH (Temp corrected) Arterial Blood 43.6 pCO2 (Temp correct) Arterial Blood 103.3 H pO2 (Temp corrected) Arterial Blood 27.2 H HCO3 Arterial Blood 2.2 Base Excess Arterial Blood 97.9 Oxygen Saturatio n Barry Test ACCEPTAB Arterial Blood Right Radial Gas Puncture Site Arterial 0.8 Blood Carboxyhem oglobin Arterial Blood 0.5 Methemoglobin Blood Gas A-a O2 73.9 H Differential Oxyhemoglobin 96.6 Percent Blood Gas 37.0 Temperature Blood Gas Actual 21 Respiration Rate Blood Gas NASAL CANNULA Modality FiO2 32.0 Blood Gas KB Notified Whom Blood Gas 09/15/2018 8:42:42 Notified Time PM Lactic Acid 1.4 1.5 Level Bedside Glucose 125 259 H Test 09/16/18 05:44 09/16/18 05:45 09/16/18 06:00 09/16/18 06:20 White Blood 10.9 #H Count Red Blood Count 5.23 Hemoglobin 14.7 Hematocrit 44.0 Mean Corpuscular 84.1 Volume Mean Corpuscular 28.1 L Hemoglobin Mean Corpuscular 33.4 Hemoglobin Radha nt Red Cell 13.7 Distribution Width Platelet Count 255 Mean Platelet 9.7 Volume Immature 0.600 H Granulocytes % Neutrophils % Segmented 90 H Neutrophils % (Manual) Band Neutrophils 3 % (Manual) Lymphocytes % Lymphocytes % 5 L (Manual) Monocytes % Monocytes % 1 (Manual) Eosinophils % Basophils % Basophils % 1 (Manual) Nucleated Red 0.0 Blood Cells % Immature 0.070 H Granulocytes # Neutrophils # Neutrophils # 9.8 H (Manual) Band Neutrophils 0.3 # Lymphocytes 0.5 L (Manual) Lymphocytes # Monocytes # Monocytes # 0.1 L (Manual) Eosinophils # Basophils # Basophils # 0.1 H (Manual) Nucleated Red Blood Cells # Platelet NORMAL Estimate Poikilocytosis 2+ Anisocytosis 1+ Microcytosis 1+ Hemoglobin A1c 6.3 H Sodium Level 142 Potassium Level 3.6 Chloride Level 104 Carbon Dioxide 26 Level Anion Gap 12 Blood Urea 20 Nitrogen Creatinine 1.26 H Est Glomerular 57 L Filtrat Rate mL/min Glucose Level 290 #H Calcium Level 9.2 Phosphorus Level 2.4 L Magnesium Level 1.9 Triglycerides 72 Level Cholesterol 130 Level LDL Cholesterol, 76 Calculated HDL Cholesterol 40 Cholesterol/HDL 3.2 Ratio Blood Gas Blood arterial Specimen Source Arterial Blood 09/16/2018 6:05:53 Date Drawn AM Arterial Blood 7.365 pH (Temp corrected) Arterial Blood 41.4 pCO2 (Temp correct) Arterial Blood 112.2 H pO2 (Temp corrected) Arterial Blood 23.1 HCO3 Arterial Blood -2.1 Base Excess Arterial Blood 98.0 Oxygen Saturatio n Barry Test ACCEPTAB Arterial Blood Right Radial Gas Puncture Site Arterial 0.1 Blood Carboxyhem oglobin Arterial Blood 0.5 Methemoglobin Blood Gas A-a O2 89.2 H Differential Oxyhemoglobin 97.4 Percent Blood Gas 37.0 Temperature Blood Gas 18.0 Respiration Rate Blood Gas Actual 20 Respiration Rate Blood Gas MASK - BIPAP Modality FiO2 35.0 Blood Gas 15/5 IPAP/EPAP Ratio Blood Gas GURPREET MARK Notified Whom Blood Gas 09/16/2018 6:17:39 Notified Time AM Bedside Glucose 283 H Test 09/16/18 08:03 09/16/18 11:36 Bedside Glucose 258 H 346 H Medications Medication Current Medications IV Flush (NS 3 ml) 3 ml PER PROTOCOL IV ; Start 09/15/18 at 20:00 Ondansetron HCl (Zofran Inj) 4 mg Q6H PRN IV NAUSEA/VOMITING; Start 09/15/18 at 20:00 Acetaminophen (Tylenol Tab) 650 mg Q6H PRN PO .PAIN 1-3 OR TEMP; Start 09/15/18 at 20:00 Acetaminophen/ Hydrocodone Bitart ([place] (5/325)) 1 tab Q6H PRN PO .MOD PAIN 4- 6; Start 09/15/18 at 20:00 Morphine Sulfate (morphine) 2 mg Q4H PRN IV .SEVERE PAIN 7-10; Start 09/15/18 at 20:00 Docusate Sodium (Colace) 100 mg Q12H PRN PO .CONSTIPATION; Start 09/15/18 at 20:00 Zolpidem Tartrate (Ambien) 5 mg QHS PRN PO .INSOMNIA Last administered on 09/15/18at 23:08; Admin Dose 5 MG; Start 09/15/18 at 20:00 Enoxaparin Sodium (Lovenox) 40 mg DAILY SC Last administered on 09/16/18at 08:19; Admin Dose 40 MG; Start 09/16/18 at 09:00 Albuterol/ Ipratropium (Duoneb) 3 ml Q4H RESP THERAPY PRN HHN SHORTNESS OF BREATH Last administered on 09/16/18at 08:32; Admin Dose 3 ML; Start 09/15/18 at 20:00 Atorvastatin Calcium (Lipitor) 20 mg QHS PO Last administered on 09/15/18at 21:19; Admin Dose 20 MG; Start 09/15/18 at 21:00 Lisinopril (Zestril) 40 mg DAILY PO Last administered on 09/16/18at 08:10; Admin Dose 40 MG; Start 09/16/18 at 09:00 Tamsulosin HCl (Flomax) 0.4 mg DAILY PO Last administered on 09/16/18 08:10; Admin Dose 0.4 MG; Start 09/16/18 at 09:00 Venlafaxine HCl (Effexor) 50 mg DAILY PO ; Start 09/16/18 at 09:00 Diagnostic Test (Pha) (Accu-Chek) 1 ea 02 XX Last administered on 09/16/18at 02:4 5; Admin Dose 1 EA; Start 09/16/18 at 02:00 Insulin Aspart (Novolog Insulin Pen) NOVOLOG *MILD* ALGORITHM WITH MEALS BEDTIME SC Last administered on 09/16/18at 12:31; Admin Dose 5 UNIT; Start 09/15/18 at 21:00 Miscellaneous Information 1 ea NOTE XX ; Start 09/15/18 at 20:30 Glucose (Glutose) 15 gm Q15M PRN PO DECREASED GLUCOSE; Start 09/15/18 at 20:30 Glucose (Glutose) 22.5 gm Q15M PRN PO DECREASED GLUCOSE; Start 09/15/18 at 20:30 Dextrose (D50w Syringe) 25 ml Q15M PRN IV DECREASED GLUCOSE; Start 09/15/18 at 20:30 Dextrose (D50w Syringe) 50 ml Q15M PRN IV DECREASED GLUCOSE; Start 09/15/18 at 20:30 Glucagon (Glucagen) 1 mg Q15M PRN IM DECREASED GLUCOSE; Start 09/15/18 at 20:30 Glucose (Glutose) 15 gm Q15M PRN BUCCAL DECREASED GLUCOSE; Start 09/15/18 at 20:30 Insulin Aspart (Novolog Insulin Pen) 9 unit WITH MEALS SC Last administered on 09/16/18at 12:31; Admin Dose 9 UNIT; Start 09/16/18 at 11:50 Methylprednisolone Sodium Succinate (Solu-Medrol) 40 mg Q8 IV ; Start 09/16/18 at 14:00 Budesonide (Pulmicort (Neb)) 0.5 mg BID RESP THERAPY N ; Start 09/16/18 at 09:30 Insulin Glargine (Lantus) 20 units DAILY@2000 SC ; Start 09/16/18 at 20:00 Albuterol/ Ipratropium (Duoneb) 3 ml Q6HWA RESP THERAPY N ; Start 09/16/18 at 14:00 Azithromycin (Zithromax) 250 mg NOW PO ; Start 09/17/18 at 09:00; Stop 09/20/18 at 09:01 MINERVA STANFORD Sep 16, 2018 13:07
[2018-09-16] MEDS: METHYLPREDNISOLONE 40 MG INJ IV SCH ×2 (14:10→22:04)
--- NOTE | 2018-09-16 15:10 | RADRPT ---
Echocardiogram Report Patient Name: BELEN LUNDYPatient ID: [id number] : 1945 ([id number] )Study Date: 09/16/2018 9:15:00 AM Gender: Selvincession #: [id number] Tech: SELVIN Location: [facility] Ref.Physician: MINERVA STANFORD Height(Cm): 165 BSA: 2.05Weight(Kg): 91.6 Quality: Technically Difficult StudyOrder Physician: MINERVA STANFORD Account #: Procedures: Echocardiographic Report: Transthoracic echocardiogram with complete 2D, M-Mode, and doppler examination. Indications: Congestive Heart Failure. Measurements: 2D/M Mode Doppler Measurement Value Normal Range Measurement Value Normal Range LVIDd 2D 4.5 [ 4.2 - 5.8 ] cm AV Peak [place] 1.2 [ 100.0 - 170.0 ] cm/sec LVIDs 2D 3.3 [ 2.5 - 4.0 ] cm AV Peak PG 5.0 [ 2.0 - 9.0 ] mmHg LVPWd 2D 1.1 [ 0.6 - 1.0 ] cm LVOT Peak [place] 0.9 [ 70.0 - 110.0 ] cm/sec IVSd 2D 1.2 [ 0.6 - 1.0 ] cm LVOT Peak PG 3.0 [ 2.0 - 6.0 ] mmHg AoR Diam 2D 4.0 [ 2.6 - 3.4 ] cm Lat E` [place] 0.1 [ 10.0 - 15.0 ] cm/sec EF 2D 53.9 [ 52.0 - 72.0 ] percent LA Dimen 2D 4.8 [ 3.0 - 4.0 ] cm Findings: Left Ventricle: Normal left ventricular cavity size. Mild concentric left ventricular hypertrophy. Mild global left ventricular systolic dysfunction. Ejection fraction is visually estimated at 45 %. Abnormal Diastolic Function, patient had tachycardia throughout exam. Right Ventricle: Normal right ventricular size. Left Atrium: There is mild enlargement of left atrium. Right Atrium: The right atrium is normal in size. Atrial Septum: Normal atrial septum. Mitral Valve: Normal appearance of the mitral valve. No mitral valve regurgitation is seen. Aortic Valve: Normal appearance of the aortic valve. Trace aortic valve regurgitation. Tricuspid Valve: Normal appearance and function of the tricuspid valve with trace physiologic regurgitation. Pulmonic Valve: Pulmonic valve not well visualized. Pericardium: Normal pericardium with no significant pericardial effusion. Aorta: Sinus of valsalva is mildly dilated. Sinus of valsalva 4.00 cm. IVC: Normal size and normal respiratory collapse consistent with normal right atrial pressure. Pulmonary Artery: Not well visualized. Conclusions: Normal left ventricular cavity size. Mild concentric left ventricular hypertrophy. Mild global left ventricular systolic dysfunction. Ejection fraction is visually estimated at 45 %. Abnormal Diastolic Function, patient had tachycardia throughout exam. Sinus of valsalva is mildly dilated. Sinus of valsalva 4.00 cm. Electronically Signed By: Jadon Miller 2018-09-16 15:10:25 PDT
[2018-09-16] MEDS ORDERED: INSULIN GLARGINE [LANTus] (100 UNITS/ML) SYG SC SCH (20:00)
[2018-09-16] MEDS: ATORVASTATIN 20 MG TAB PO SCH (21:39)
[2018-09-17] VITALS (12 sets, daily range): BP systolic 119–139; BP diastolic 72–92; PULSE 52–132; RESP 18–20
[2018-09-17] MEDS: ZOLPIDEM 5 MG TAB PO PRN (00:08)
[2018-09-17] MEDS: ACCU-CHEK XX SCH (02:11)
[2018-09-17] MEDS: ALBUTEROL/IPRATROPIUM (NEB) 3 ML AMP HHN PRN (02:57)
[2018-09-17] MEDS: METHYLPREDNISOLONE 40 MG INJ IV SCH ×3 (06:37→21:30)
[2018-09-17] MEDS: BUDESONIDE (NEB) 0.5MG/2ML AMP HHN SCH ×2 (07:40→21:45)
[2018-09-17] MEDS: ALBUTEROL/IPRATROPIUM (NEB) 3 ML AMP HHN SCH ×3 (07:40→21:54)
[2018-09-17] MEDS: LISINOPRIL 20 MG TAB PO SCH (08:47)
[2018-09-17] MEDS: AZITHROMYCIN 250 MG TAB PO SCH (08:47)
[2018-09-17] MEDS: TAMSULOSIN (SR) 0.4 MG CAP PO SCH (08:47)
[2018-09-17] MEDS: ENOXAPARIN 40 MG/0.4 ML SYG SC SCH (08:58)
[2018-09-17] MEDS: INSULIN ASPART [NOVOLOG] 3 ML PEN SC SCH ×7 (08:58→20:15)
[2018-09-17] MEDS: VENLAFAXINE 25 MG TAB PO SCH (08:58)
[2018-09-17] MEDS ORDERED: FUROSEMIDE 20 MG TAB PO SCH (09:00)
--- NOTE | 2018-09-17 11:42 | CONS ---
Assessment/Plan Assessment/Plan Assessment/Plan (Daily) Assessment and recommendations; 1. Patient admitted with asthma exacerbation and acute bronchitis, currently on appropriate treatment regimen. Still having persistent symptoms. 2. Apparently poorly controlled asthma on an outpatient basis. 3. History of diabetes and hypertension. 4. Mild elevation in serum creatinine likely induced by Lasix. Continue current supportive care. Discontinue Lasix. Monitor renal function. Consultation Date/Type/Reason Admit Date/Time Sep 15, 2018 at 17:27 Initial Consult Date 09/16/18 Type of Consult Pulmonary Patient is a pleasant 72-year-old gentleman who came into the hospital with a few days history of increased wheezing, coughing, production of white-yellow sputum. Upon evaluation patient has been diagnosed with asthma exacerbation and treated with appropriate modality regimen. Patient is reporting some improvement since admission. Patient does complain of chronic symptoms of asthma which apparently is poorly controlled on an outpatient basis. He does complain of frequent flareups as well. Patient however denies any high fever, chills, body aches or myalgias and also denies any sinus symptoms. Past medical history; 1. Asthma 2. Diabetes and hypertension. Medications; reviewed. Allergies; sulfa drugs. Social history; noncontributory. Family history; he is single, he does not have any children. No show any asthma in the family. Occupational history; patient is on disability. Review of systems; denies any headache, seizures, sinus symptoms. Any dysph agia. Any chest pain or angina. Complains of cough with wheezing as well as mild dyspnea on exertion. Denies any abdominal pain, nausea vomiting. Any melena or hematochezia. Any urinary symptoms. Denies any weight gain. Denies any orthopnea. Complains of occasional snoring and daytime sleepiness. General exam; elderly male, looks younger than age. Currently no distress. Laying comfortably in bed. Date/Time of Note DATE: 09/17/18 TIME: 11:40 24 HR Interval Summary Free Text/Dictation Patient's condition is unchanged. Still complains of cough and wheezing. General exam; elderly male, awake alert, laying comfortably in bed. Currently in no distress. Exam/Review of Systems Exam Vitals Vital Signs Date Temp Pulse Resp B/P (MAP) Pulse Ox O2 O2 Flow FiO2 Time Delivery Rate 09/17/18 97.8 52 20 139/74 94 Nasal 11:11 (95) Cannula 09/17/18 3.0 07:50 09/17/18 31 03:10 Intake and Output 09/16/18 09/16/18 09/17/18 1515:00 23:00 07:00 IntakeIntake Total 1200 ml OutputOutput Total 1100 ml BalanceBalance 100 ml Exam HEENT exam; supple, no JVD. No lymphadenopathy. Midline trachea. No thyro megaly. Patient has fair dentition. Chest exam; mild bilateral expiratory wheezing. S1-S2 audible, no murmurs. Regular rhythm. Abdomen exam; soft, nontender. No organomegaly. Bowel sounds audible. Extremity exam; no peripheral edema clubbing. [employer] exam; no focal deficit. Results Result Diagram: 09/17/18 0755 09/17/18 0755 Results 24hrs Laboratory Tests Test 09/16/18 17:46 09/16/18 21:42 09/17/18 02:10 09/17/18 07:55 Bedside Glucose 296 H 321 H 278 H White Blood Count 20.6 #H Red Blood Count 4.96 Hemoglobin 14.2 Hematocrit 41.6 L Mean Corpuscular 83.9 Volume Mean Corpuscular 28.6 L Hemoglobin Mean Corpuscular 34.1 Hemoglobin Concent Red Cell Distribution 14.0 Width Platelet Count 261 Mean Platelet Volume 9.8 Immature Granulocytes 0.800 H % Neutrophils % 88.0 H Lymphocytes % 5.5 L Monocytes % 5.5 Eosinophils % 0.0 Basophils % 0.2 Nucleated Red Blood 0.0 Cells % Immature Granulocytes 0.170 H # Neutrophils # 18.1 H Lymphocytes # 1.1 Monocytes # 1.1 H Eosinophils # 0.0 Basophils # 0.0 Nucleated Red Blood 0.0 Cells # Sodium Level 139 Potassium Level 3.6 Chloride Level 103 Carbon Dioxide Level 24 Anion Gap 12 Blood Urea Nitrogen 37 #H Creatinine 1.41 H Est Glomerular 50 L Filtrat Rate mL/min Glucose Level 296 H Calcium Level 8.8 Phosphorus Level 3.1 Magnesium Level 1.7 Test 09/17/18 08:28 Bedside Glucose 271 H Medications Medication Current Medications IV Flush (NS 3 ml) 3 ml PER PROTOCOL IV ; Start 09/15/18 at 20:00 Ondansetron HCl (Zofran Inj) 4 mg Q6H PRN IV NAUSEA/VOMITING; Start 09/15/18 at 20:00 Acetaminophen (Tylenol Tab) 650 mg Q6H PRN PO .PAIN 1-3 OR TEMP; Start 09/15/18 at 20:00 Acetaminophen/ Hydrocodone Bitart ([place] (5/325)) 1 tab Q6H PRN PO .MOD PAIN 4- 6; Start 09/15/18 at 20:00 Morphine Sulfate (morphine) 2 mg Q4H PRN IV .SEVERE PAIN 7-10; Start 09/15/18 at 20:00 Docusate Sodium (Colace) 100 mg Q12H PRN PO .CONSTIPATION; Start 09/15/18 at 20:00 Zolpidem Tartrate (Ambien) 5 mg QHS PRN PO .INSOMNIA Last administered on 09/17/18at 00:08; Admin Dose 5 MG; Start 09/15/18 at 20:00 Enoxaparin Sodium (Lovenox) 40 mg DAILY SC Last administered on 09/17/18at 08:58; Admin Dose 40 MG; Start 09/16/18 at 09:00 Albuterol/ Ipratropium (Duoneb) 3 ml Q4H RESP THERAPY PRN HHN SHORTNESS OF COLLEEN TH Last administered on 09/17/18at 02:57; Admin Dose 3 ML; Start 09/15/18 at 20:00 Atorvastatin Calcium (Lipitor) 20 mg QHS PO Last administered on 09/16/18at 21:39; Admin Dose 20 MG; Start 09/15/18 at 21:00 Lisinopril (Zestril) 40 mg DAILY PO Last administered on 09/17/18at 08:47; Admin Dose 40 MG; Start 09/16/18 at 09:00 Tamsulosin HCl (Flomax) 0.4 mg DAILY PO Last administered on 09/17/18at 08:47; A dmin Dose 0.4 MG; Start 09/16/18 at 09:00 Venlafaxine HCl (Effexor) 50 mg DAILY PO ; Start 09/16/18 at 09:00 Miscellaneous Information 1 ea NOTE XX ; Start 09/15/18 at 20:30 Glucose (Glutose) 15 gm Q15M PRN PO DECREASED GLUCOSE; Start 09/15/18 at 20:30 Glucose (Glutose) 22.5 gm Q15M PRN PO DECREASED GLUCOSE; Start 09/15/18 at 20:30 Dextrose (D50w Syringe) 25 ml Q15M PRN IV DECREASED GLUCOSE; Start 09/15/18 at 20:30 Dextrose (D50w Syringe) 50 ml Q15M PRN IV DECREASED GLUCOSE; Start 09/15/18 at 20:30 Glucagon (Glucagen) 1 mg Q15M PRN IM DECREASED GLUCOSE; Start 09/15/18 at 20:30 Glucose (Glutose) 15 gm Q15M PRN BUCCAL DECREASED GLUCOSE; Start 09/15/18 at 20:30 Methylprednisolone Sodium Succinate (Solu-Medrol) 40 mg Q8 IV Last administered on 09/17/18at 06:37; Admin Dose 40 MG; Start 09/16/18 at 14:00 Budesonide (Pulmicort (Neb)) 0.5 mg BID RESP THERAPY HHN Last administered on 09/17/18at 07:40; Admin Dose 0.5 MG; Start 09/16/18 at 09:30 Albuterol/ Ipratropium (Duoneb) 3 ml Q6HWA RESP THERAPY HHN Last administered on 09/17/18at 07:40; Admin Dose 3 ML; Start 09/16/18 at 14:00 Azithromycin (Zithromax) 250 mg NOW PO Last administered on 09/17/18at 08:47; Admin Dose 250 MG; Start 09/17/18 at 09:00; Stop 09/20/18 at 09:01 Furosemide (Lasix) 20 mg DAILY PO Last administered on 09/17/18at 08:48; Admin Dose 20 MG; Start 09/17/18 at 09:00 Insulin Aspart (Novolog Insulin Pen) NOVOLOG *MODERATE* ALGORITHM WITH MEALS BEDTIME SC Last administered on 09/17/18at 08:58; Admin Dose 8 UNIT; Start at 21:00 Insulin Aspart (Novolog Insulin Pen) 15 unit WITH MEALS SC ; Start 09/17/18 at 11:50 Insulin Glargine (Lantus) 30 units DAILY@2000 SC ; Start 09/17/18 at 20:00 Metoprolol Succinate (Toprol Xl) 50 mg DAILY PO ; Start 09/17/18 at 11:00 SOTO HEMPHILL Sep 17, 2018 11:42
[2018-09-17] MEDS: METOPROLOL (XL) 50 MG TAB PO SCH (12:12)
--- NOTE | 2018-09-17 14:09 | PN ---
Date/Time of Note Date/Time of Note DATE: 09/17/18 TIME: 14:08 Assessment/Plan VTE Prophylaxis Risk score (from Ns)>0 risk: 4 SCD applied (from Ns): Yes Pharmacological prophylaxis: heparin Lines/Catheters IV Catheter Type (from Nrs): Saline Lock Urinary Cath still in place: No Assessment/Plan Hospital Course AOx3, pleasant comfortable Diffuse expiratory wheezing Nonlabored RRR A/p: 72 yo male wilth DMII, COPD presenting with acute COPD exacerbation - Continue steroids, bronchodilators, azithromycin DMII - Titrate basal/bolus insulin Result Diagram: 09/17/18 0755 09/17/18 0755 Results 24hrs Laboratory Tests Test 09/16/18 17:46 09/16/18 21:42 09/17/18 02:10 09/17/18 07:55 Bedside Glucose 296 H 321 H 278 H White Blood Count 20.6 #H Red Blood Count 4.96 Hemoglobin 14.2 Hematocrit 41.6 L Mean Corpuscular 83.9 Volume Mean Corpuscular 28.6 L Hemoglobin Mean Corpuscular 34.1 Hemoglobin Concent Red Cell 14.0 Distribution Width Platelet Count 261 Mean Platelet Volume 9.8 Immature 0.800 H Granulocytes % Neutrophils % 88.0 H Lymphocytes % 5.5 L Monocytes % 5.5 Eosinophils % 0.0 Basophils % 0.2 Nucleated Red Blood 0.0 Cells % Immature 0.170 H Granulocytes # Neutrophils # 18.1 H Lymphocytes # 1.1 Monocytes # 1.1 H Eosinophils # 0.0 Basophils # 0.0 Nucleated Red Blood 0.0 Cells # Sodium Level 139 Potassium Level 3.6 Chloride Level 103 Carbon Dioxide Level 24 Anion Gap 12 Blood Urea Nitrogen 37 #H Creatinine 1.41 H Est Glomerular 50 L Filtrat Rate mL/min Glucose Level 296 H Calcium Level 8.8 Phosphorus Level 3.1 Magnesium Level 1.7 Test 09/17/18 08:28 09/17/18 12:05 Bedside Glucose 271 H 283 H Subjective 24 Hr Interval Summary Free Text/Dictation Still quite wheezy, SOB Exam/Review of Systems Exam Vitals Vital Signs Date Temp Pulse Resp B/P (MAP) Pulse Ox O2 O2 Flow FiO2 Time Delivery Rate 09/17/18 101 22 95 Nasal 2.0 13:58 Cannula 09/17/18 97.8 139/74 11:11 (95) 09/17/18 31 03:10 Intake and Output 09/16/18 09/16/18 09/17/18 1414:59 22:59 06:59 IntakeIntake Total 1200 ml OutputOutput Total 1100 ml BalanceBalance 100 ml Results Results 24hrs Laboratory Tests Test 09/16/18 17:46 09/16/18 21:42 09/17/18 02:10 09/17/18 07:55 Bedside Glucose 296 H 321 H 278 H White Blood Count 20.6 #H Red Blood Count 4.96 Hemoglobin 14.2 Hematocrit 41.6 L Mean Corpuscular 83.9 Volume Mean Corpuscular 28.6 L Hemoglobin Mean Corpuscular 34.1 Hemoglobin Concent Red Cell 14.0 Distribution Width Platelet Count 261 Mean Platelet Volume 9.8 Immature 0.800 H Granulocytes % Neutrophils % 88.0 H Lymphocytes % 5.5 L Monocytes % 5.5 Eosinophils % 0.0 Basophils % 0.2 Nucleated Red Blood 0.0 Cells % Immature 0.170 H Granulocytes # Neutrophils # 18.1 H Lymphocytes # 1.1 Monocytes # 1.1 H Eosinophils # 0.0 Basophils # 0.0 Nucleated Red Blood 0.0 Cells # Sodium Level 139 Potassium Level 3.6 Chloride Level 103 Carbon Dioxide Level 24 Anion Gap 12 Blood Urea Nitrogen 37 #H Creatinine 1.41 H Est Glomerular 50 L Filtrat Rate mL/min Glucose Level 296 H Calcium Level 8.8 Phosphorus Level 3.1 Magnesium Level 1.7 Test 09/17/18 08:28 09/17/18 12:05 Bedside Glucose 271 H 283 H Medications Medication Current Medications IV Flush (NS 3 ml) 3 ml PER PROTOCOL IV ; Start 09/15/18 at 20:00 Ondansetron HCl (Zofran Inj) 4 mg Q6H PRN IV NAUSEA/VOMITING; Start 09/15/18 at 20:00 Acetaminophen (Tylenol Tab) 650 mg Q6H PRN PO .PAIN 1-3 OR TEMP; Start 09/15/18 at 20:00 Acetaminophen/ Hydrocodone Bitart ([place] (5/325)) 1 tab Q6H PRN PO .MOD PAIN 4- 6; Start 09/15/18 at 20:00 Morphine Sulfate (morphine) 2 mg Q4H PRN IV .SEVERE PAIN 7-10; Start 09/15/18 at 20:00 Docusate Sodium (Colace) 100 mg Q12H PRN PO .CONSTIPATION; Start 09/15/18 at 20:00 Zolpidem Tartrate (Ambien) 5 mg QHS PRN PO .INSOMNIA Last administered on 09/17/18at 00:08; Admin Dose 5 MG; Start 09/15/18 at 20:00 Enoxaparin Sodium (Lovenox) 40 mg DAILY SC Last administered on 09/17/18at 08:58; Admin Dose 40 MG; Start 09/16/18 at 09:00 Albuterol/ Ipratropium (Duoneb) 3 ml Q4H RESP THERAPY PRN HHN SHORTNESS OF BREATH Last administered on 09/17/18at 02:57; Admin Dose 3 ML; Start 09/15/18 at 20:00 Atorvastatin Calcium (Lipitor) 20 mg QHS PO Last administered on 09/16/18at 21:39; Admin Dose 20 MG; Start 09/15/18 at 21:00 Lisinopril (Zestril) 40 mg DAILY PO Last administered on 09/17/18at 08:47; Admin Dose 40 MG; Start 09/16/18 at 09:00 Tamsulosin HCl (Flomax) 0.4 mg DAILY PO Last administered on 09/17/18at 08:47; Admin Dose 0.4 MG; Start 09/16/18 at 09:00 Venlafaxine HCl (Effexor) 50 mg DAILY PO ; Start 09/16/18 at 09:00 Miscellaneous Information 1 ea NOTE XX ; Start 09/15/18 at 20:30 Glucose (Glutose) 15 gm Q15M PRN PO DECREASED GLUCOSE; Start 09/15/18 at 20:30 Glucose (Glutose) 22.5 gm Q15M PRN PO DECREASED GLUCOSE; Start 09/15/18 at 20:30 Dextrose (D50w Syringe) 25 ml Q15M PRN IV DECREASED GLUCOSE; Start 09/15/18 at 20:30 Dextrose (D50w Syringe) 50 ml Q15M PRN IV DECREASED GLUCOSE; Start 09/15/18 at 20:30 Glucagon (Glucagen) 1 mg Q15M PRN IM DECREASED GLUCOSE; Start 09/15/18 at 20:30 Glucose (Glutose) 15 gm Q15M PRN BUCCAL DECREASED GLUCOSE; Start 09/15/18 at 20:30 Methylprednisolone Sodium Succinate (Solu-Medrol) 40 mg Q8 IV Last administered on 09/17/18 06:37; Admin Dose 40 MG; Start 09/16/18 at 14:00 Budesonide (Pulmicort (Neb)) 0.5 mg BID RESP THERAPY HHN Last administered on 09/17/18 07:40; Admin Dose 0.5 MG; Start 09/16/18 at 09:30 Albuterol/ Ipratropium (Duoneb) 3 ml Q6HWA RESP THERAPY HHN Last administered on 09/17/18 13:58; Admin Dose 3 ML; Start 09/16/18 at 14:00 Azithromycin (Zithromax) 250 mg NOW PO Last administered on 09/17/18 08:47; Admin Dose 250 MG; Start 09/17/18 at 09:00; Stop 09/20/18 at 09:01 Insulin Aspart (Novolog Insulin Pen) NOVOLOG *MODERATE* ALGORITHM WITH MEALS BEDTIME SC Last administered on 09/17/18 12:15; Admin Dose 8 UNIT; Start 09/16/18 at 21:00 Insulin Aspart (Novolog Insulin Pen) 15 unit WITH MEALS SC Last administered on 09/17/18 12:16; Admin Dose 15 UNIT; Start 09/17/18 at 11:50 Insulin Glargine (Lantus) 30 units DAILY@2000 SC ; Start 09/17/18 at 20:00 Metoprolol Succinate (Toprol Xl) 50 mg DAILY PO Last administered on 09/17/18 12:12; Admin Dose 50 MG; Start 09/17/18 at 11:00 BARBIE OBRIEN MD Sep 17, 2018 14:09
[2018-09-17] MEDS: ALPRAZOLAM 1 MG TAB PO PRN (15:37)
[2018-09-17] MEDS: HYDROCODONE/APAP (5/325) TAB PO PRN (17:59)
[2018-09-17] MEDS: INSULIN GLARGINE [LANTus] (100 UNITS/ML) SYG SC SCH (20:14)
[2018-09-17] MEDS: ATORVASTATIN 20 MG TAB PO SCH (20:15)
[2018-09-18] VITALS (11 sets, daily range): BP systolic 120–127; BP diastolic 64–82; PULSE 47–87; RESP 18–20
[2018-09-18] MEDS: METHYLPREDNISOLONE 40 MG INJ IV SCH (05:41)
[2018-09-18] MEDS: BUDESONIDE (NEB) 0.5MG/2ML AMP HHN SCH ×2 (08:04→19:11)
[2018-09-18] MEDS: ALBUTEROL/IPRATROPIUM (NEB) 3 ML AMP HHN SCH ×3 (08:04→19:11)
[2018-09-18] MEDS: TAMSULOSIN (SR) 0.4 MG CAP PO SCH (08:09)
[2018-09-18] MEDS: HYDROCODONE/APAP (5/325) TAB PO PRN ×2 (08:09→22:03)
[2018-09-18] MEDS: METOPROLOL (XL) 50 MG TAB PO SCH (08:09)
[2018-09-18] MEDS: LISINOPRIL 20 MG TAB PO SCH (08:10)
[2018-09-18] MEDS: AZITHROMYCIN 250 MG TAB PO SCH (08:14)
[2018-09-18] MEDS: INSULIN ASPART [NOVOLOG] 3 ML PEN SC SCH ×7 (08:39→20:34)
[2018-09-18] MEDS: ENOXAPARIN 40 MG/0.4 ML SYG SC SCH (08:42)
[2018-09-18] MEDS: VENLAFAXINE 25 MG TAB PO SCH (09:00)
--- NOTE | 2018-09-18 11:54 | CONS ---
Assessment/Plan Assessment/Plan Assessment/Plan (Daily) Assessment and recommendations; next 1. Patient admitted with severe asthma exacerbation with acute bronchitis with suboptimally controlled asthma on an outpatient basis. Patient having persistent symptoms despite adequate bronchodilator regimen. 2. History of diabetes and hypertension. 3. Possible underlying sleep apnea. Increase Solu-Medrol to 60 mg every 6 hours from 40 mg every 8 hours. Continue other supportive measures. Consultation Date/Type/Reason Admit Date/Time Sep 15, 2018 at 17:27 Initial Consult Date 09/16/18 Type of Consult Pulmonary Patient is a pleasant 72-year-old gentleman who came into the hospital with a few days history of increased wheezing, coughing, production of white-yellow sputum. Upon evaluation patient has been diagnosed with asthma exacerbation and treated with appropriate modality regimen. Patient is reporting some improvement since admission. Patient does complain of chronic symptoms of asthma which apparently is poorly controlled on an outpatient basis. He does complain of frequent flareups as well. Patient however denies any high fever, chills, body aches or myalgias and also denies any sinus symptoms. Past medical history; 1. Asthma 2. Diabetes and hypertension. Medications; reviewed. Allergies; sulfa drugs. Social history; noncontributory. Family history; he is single, he does not have any children. No show any asthma in the family. Occupational history; patient is on disability. Review of systems; denies any headache, seizures, sinus symptoms. Any dysphagia. Any chest pain or angina. Complains of cough with wheezing as well as mild dyspnea on exertion. Denies any abdominal pain, nausea vomiting. Any melena or hematochezia. Any urinary symptoms. Denies any weight gain. Denies any orthopnea. Complains of occasional snoring and daytime sleepiness. General exam; elderly male, looks younger than age. Currently no distress. Laying comfortably in bed. Date/Time of Note DATE: 09/18/18 TIME: 11:53 24 HR Interval Summary Free Text/Dictation Patient still complaining of wheezing shortness of breath and cough. Has not shown any improvement in symptoms. General exam; elderly male, appears overweight, awake and alert. Currently no distress. Exam/Review of Systems Exam Vitals Vital Signs Date Temp Pulse Resp B/P (MAP) Pulse Ox O2 O2 Flow FiO2 Time Delivery Rate 09/18/18 98.2 52 18 124/73 96 Nasal 11:13 (90) Cannula 09/18/18 3.0 08:05 09/18/18 28 01:03 Intake and Output 09/17/18 09/17/18 09/18/18 1515:00 23:00 07:00 IntakeIntake Total 1600 ml BalanceBalance 1600 ml Exam HEENT exam; supple neck, no JVD. No lymphadenopathy. Midline trachea. No thyromegaly. Patient has fair dentition. No neck masses. Chest exam; bilateral wheezing. S1-S2 audible, no murmurs. Regular rhythm. Abdomen exam; soft, protuberant. Nontender. No organomegaly. Bowel sounds are audible. There is a small plical hernia. Extremity exam; no peripheral edema clubbing. 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 Results Result Diagram: 09/17/18 0755 09/17/18 0755 Results 24hrs Laboratory Tests Test 09/17/18 12:05 09/17/18 17:30 09/17/18 20:09 09/18/18 07:53 Bedside Glucose 283 H 149 171 171 Medications Medication Current Medications IV Flush (NS 3 ml) 3 ml PER PROTOCOL IV ; Start 09/15/18 at 20:00 Ondansetron HCl (Zofran Inj) 4 mg Q6H PRN IV NAUSEA/VOMITING; Start 09/15/18 at 20:00 Acetaminophen (Tylenol Tab) 650 mg Q6H PRN PO .PAIN 1-3 OR TEMP; Start 09/15/18 at 20:00 Acetaminophen/ Hydrocodone Bitart ([place] (5/325)) 1 tab Q6H PRN PO .MOD PAIN 4- 6 Last administered on 09/18/18at 08:09; Admin Dose 1 TAB; Start 09/15/18 at 20:00 Morphine Sulfate (morphine) 2 mg Q4H PRN IV .SEVERE PAIN 7-10; Start 09/15/18 at 20:00 Docusate Sodium (Colace) 100 mg Q12H PRN PO .CONSTIPATION; Start 09/15/18 at 20:00 Zolpidem Tartrate (Ambien) 5 mg QHS PRN PO .INSOMNIA Last administered on 09/17/18at 00:08; Admin Dose 5 MG; Start 09/15/18 at 20:00 Enoxaparin Sodium (Lovenox) 40 mg DAILY SC Last administered on 09/18/18at 08:42; Admin Dose 40 MG; Start 09/16/18 at 09:00 Albuterol/ Ipratropium (Duoneb) 3 ml Q4H RESP THERAPY PRN HHN SHORTNESS OF B REATH Last administered on 09/17/18at 02:57; Admin Dose 3 ML; Start 09/15/18 at 20:00 Atorvastatin Calcium (Lipitor) 20 mg QHS PO Last administered on 09/17/18at 20:15; Admin Dose 20 MG; Start 09/15/18 at 21:00 Lisinopril (Zestril) 40 mg DAILY PO Last administered on 09/18/18at 08:10; Admin Dose 40 MG; Start 09/16/18 at 09:00 Tamsulosin HCl (Flomax) 0.4 mg DAILY PO Last administered on 09/18/18 08:09; Admin Dose 0.4 MG; Start 09/16/18 at 09:00 Venlafaxine HCl (Effexor) 50 mg DAILY PO ; Start 09/16/18 at 09:00 Miscellaneous Information 1 ea NOTE XX ; Start 09/15/18 at 20:30 Glucose (Glutose) 15 gm Q15M PRN PO DECREASED GLUCOSE; Start 09/15/18 at 20:30 Glucose (Glutose) 22.5 gm Q15M PRN PO DECREASED GLUCOSE; Start 09/15/18 at 20:30 Dextrose (D50w Syringe) 25 ml Q15M PRN IV DECREASED GLUCOSE; Start 09/15/18 at 20:30 Dextrose (D50w Syringe) 50 ml Q15M PRN IV DECREASED GLUCOSE; Start 09/15/18 at 2 0:30 Glucagon (Glucagen) 1 mg Q15M PRN IM DECREASED GLUCOSE; Start 09/15/18 at 20:30 Glucose (Glutose) 15 gm Q15M PRN BUCCAL DECREASED GLUCOSE; Start 09/15/18 at 20:30 Methylprednisolone Sodium Succinate (Solu-Medrol) 40 mg Q8 IV Last administered on 09/18/18at 05:41; Admin Dose 40 MG; Start 09/16/18 at 14:00 Budesonide (Pulmicort (Neb)) 0.5 mg BID RESP THERAPY HHN Last administered on 09/18/18at 08:04; Admin Dose 0.5 MG; Start 09/16/18 at 09:30 Albuterol/ Ipratropium (Duoneb) 3 ml Q6HWA RESP THERAPY HHN Last administered on 09/18/18 08:04; Admin Dose 3 ML; Start 09/16/18 at 14:00 Azithromycin (Zithromax) 250 mg NOW PO Last administered on 09/18/18 08:14; Admin Dose 250 MG; Start 09/17/18 at 09:00; Stop 09/20/18 at 09:01 Insulin Aspart (Novolog Insulin Pen) NOVOLOG *MODERATE* ALGORITHM WITH MEALS BEDTIME SC Last administered on 09/18/18 08:41; Admin Dose 2 UNIT; Start 09/16/18 at 21:00 Insulin Aspart (Novolog Insulin Pen) 15 unit WITH MEALS SC Last administered on 09/18/18 08:39; Admin Dose 15 UNIT; Start 09/17/18 at 11:50 Insulin Glargine (Lantus) 30 units DAILY@2000 SC Last administered on 09/17/18 20:14; Admin Dose 30 UNITS; Start 09/17/18 at 20:00 Metoprolol Succinate (Toprol Xl) 50 mg DAILY PO Last administered on 09/18/18 08:09; Admin Dose 50 MG; Start 09/17/18 at 11:00 Alprazolam (Xanax) 1 mg Q8H PRN PO ANXIETY Last administered on 09/17/18 15:37; Admin Dose 1 MG; Start 09/17/18 at 15:30 SOTO HEMPHILL Sep 18, 2018 11:54
--- NOTE | 2018-09-18 12:40 | PN ---
Date/Time of Note Date/Time of Note DATE: 09/18/18 TIME: 12:40 Assessment/Plan VTE Prophylaxis Risk score (from Nsg)>0 risk: 4 SCD applied (from Nsg): Yes Pharmacological prophylaxis: heparin Lines/Catheters IV Catheter Type (from Nrsg): Peripheral IV Urinary Cath still in place: No Assessment/Plan Hospital Course AOx3, pleasant comfortable Diffuse expiratory wheezing Nonlabored RRR A/p: 72 yo male wilth DMII, COPD presenting with acute COPD exacerbation - Continue steroids, bronchodilators, azithromycin DMII - Titrate basal/bolus insulin Result Diagram: 09/17/18 0755 09/17/18 0755 Results 24hrs Laboratory Tests Test 09/17/18 17:30 09/17/18 20:09 09/18/18 07:53 09/18/18 11:51 Bedside Glucose 149 171 171 279 H Subjective 24 Hr Interval Summary Free Text/Dictation lots of couhg, still wheezing, SOB Exam/Review of Systems Exam Vitals Vital Signs Date Temp Pulse Resp B/P (MAP) Pulse Ox O2 O2 Flow FiO2 Time Delivery Rate 09/18/18 98.2 52 18 124/73 96 Nasal 11:13 (90) Cannula 09/18/18 3.0 08:05 09/18/18 28 01:03 Intake and Output 09/17/18 09/17/18 09/18/18 1515:00 23:00 07:00 IntakeIntake Total 1600 ml BalanceBalance 1600 ml Results Results 24hrs Laboratory Tests Test 09/17/18 17:30 09/17/18 20:09 09/18/18 07:53 09/18/18 11:51 Bedside Glucose 149 171 171 279 H Medications Medication Current Medications IV Flush (NS 3 ml) 3 ml PER PROTOCOL IV ; Start 09/15/18 at 20:00 Ondansetron HCl (Zofran Inj) 4 mg Q6H PRN IV NAUSEA/VOMITING; Start 09/15/18 at 20:00 Acetaminophen (Tylenol Tab) 650 mg Q6H PRN PO .PAIN 1-3 OR TEMP; Start 09/15/18 at 20:00 Acetaminophen/ Hydrocodone Bitart ([place] (5/325)) 1 tab Q6H PRN PO .MOD PAIN 4- 6 Last administered on 09/18/18at 08:09; Admin Dose 1 TAB; Start 09/15/18 at 20:00 Morphine Sulfate (morphine) 2 mg Q4H PRN IV .SEVERE PAIN 7-10; Start 09/15/18 at 20:00 Docusate Sodium (Colace) 100 mg Q12H PRN PO .CONSTIPATION; Start 09/15/18 at 20:00 Zolpidem Tartrate (Ambien) 5 mg QHS PRN PO .INSOMNIA Last administered on 09/17/18at 00:08; Admin Dose 5 MG; Start 09/15/18 at 20:00 Enoxaparin Sodium (Lovenox) 40 mg DAILY SC Last administered on 09/18/18at 08:42; Admin Dose 40 MG; Start 09/16/18 at 09:00 Albuterol/ Ipratropium (Duoneb) 3 ml Q4H RESP THERAPY PRN HHN SHORTNESS OF BREATH Last administered on 09/17/18at 02:57; Admin Dose 3 ML; Start 09/15/18 at 20:00 Atorvastatin Calcium (Lipitor) 20 mg QHS PO Last administered on 09/17/18at 20:15; Admin Dose 20 MG; Start 09/15/18 at 21:00 Lisinopril (Zestril) 40 mg DAILY PO Last administered on 09/18/18at 08:10; Admin Dose 40 MG; Start 09/16/18 at 09:00 Tamsulosin HCl (Flomax) 0.4 mg DAILY PO Last administered on 09/18/18at 08:09; Admin Dose 0.4 MG; Start 09/16/18 at 09:00 Venlafaxine HCl (Effexor) 50 mg DAILY PO ; Start 09/16/18 at 09:00 Miscellaneous Information 1 ea NOTE XX ; Start 09/15/18 at 20:30 Glucose (Glutose) 15 gm Q15M PRN PO DECREASED GLUCOSE; Start 09/15/18 at 20:30 Glucose (Glutose) 22.5 gm Q15M PRN PO DECREASED GLUCOSE; Start 09/15/18 at 20:30 Dextrose (D50w Syringe) 25 ml Q15M PRN IV DECREASED GLUCOSE; Start 09/15/18 at 20:30 Dextrose (D50w Syringe) 50 ml Q15M PRN IV DECREASED GLUCOSE; Start 09/15/18 at 20:30 Glucagon (Glucagen) 1 mg Q15M PRN IM DECREASED GLUCOSE; Start 09/15/18 at 20:30 Glucose (Glutose) 15 gm Q15M PRN BUCCAL DECREASED GLUCOSE; Start 09/15/18 at 20:30 Budesonide (Pulmicort (Neb)) 0.5 mg BID RESP THERAPY HHN Last administered on 09/18/18 08:04; Admin Dose 0.5 MG; Start 09/16/18 at 09:30 Albuterol/ Ipratropium (Duoneb) 3 ml Q6HWA RESP THERAPY HHN Last administered on 09/18/18 08:04; Admin Dose 3 ML; Start 09/16/18 at 14:00 Azithromycin (Zithromax) 250 mg NOW PO Last administered on 09/18/18 08:14; Admin Dose 250 MG; Start 09/17/18 at 09:00; Stop 09/20/18 at 09:01 Insulin Aspart (Novolog Insulin Pen) NOVOLOG *MODERATE* ALGORITHM WITH MEALS BEDTIME SC Last administered on 09/18/18 12:06; Admin Dose 8 UNIT; Start 09/16/18 at 21:00 Insulin Aspart (Novolog Insulin Pen) 15 unit WITH MEALS SC Last administered on 09/18/18 12:07; Admin Dose 15 UNIT; Start 09/17/18 at 11:50 Insulin Glargine (Lantus) 30 units DAILY@2000 SC Last administered on 09/17/18 20:14; Admin Dose 30 UNITS; Start 09/17/18 at 20:00 Metoprolol Succinate (Toprol Xl) 50 mg DAILY PO Last administered on 09/18/18 08:09; Admin Dose 50 MG; Start 09/17/18 at 11:00 Alprazolam (Xanax) 1 mg Q8H PRN PO ANXIETY Last administered on 09/17/18 15:37; Admin Dose 1 MG; Start 09/17/18 at 15:30 Methylprednisolone Sodium Succinate (Solu-Medrol) 60 mg Q6 IV ; Start 09/18/18 at 12:00 Linagliptin (Tradjenta) 5 mg DAILY PO ; Start 09/18/18 at 13:00 BARBIE OBRIEN MD Sep 18, 2018 12:40
[2018-09-18] MEDS: METHYLPREDNISOLONE 125 MG INJ IV SCH ×3 (13:31→23:04)
[2018-09-18] MEDS: LINAGLIPTIN 5 MG TABLET PO SCH (13:31)
[2018-09-18] MEDS: ATORVASTATIN 20 MG TAB PO SCH (20:24)
[2018-09-18] MEDS: INSULIN GLARGINE [LANTus] (100 UNITS/ML) SYG SC SCH (20:33)
[2018-09-19] VITALS (14 sets, daily range): BP systolic 107–143; BP diastolic 71–95; PULSE 50–135; RESP 20–22
[2018-09-19] MEDS: morphine 2 MG INJ IV PRN (00:08)
[2018-09-19] MEDS: ALPRAZOLAM 1 MG TAB PO PRN (01:34)
[2018-09-19] MEDS: ALBUTEROL/IPRATROPIUM (NEB) 3 ML AMP HHN PRN (01:39)
[2018-09-19] MEDS ORDERED: FUROSEMIDE 40 MG INJ IV ONE (06:00)
[2018-09-19] MEDS: METHYLPREDNISOLONE 125 MG INJ IV SCH ×4 (06:02→23:12)
[2018-09-19] MEDS: BUDESONIDE (NEB) 0.5MG/2ML AMP HHN SCH ×2 (08:06→19:34)
[2018-09-19] MEDS: ALBUTEROL/IPRATROPIUM (NEB) 3 ML AMP HHN SCH ×3 (08:06→19:34)
[2018-09-19] MEDS: INSULIN ASPART [NOVOLOG] 3 ML PEN SC SCH ×7 (08:37→20:06)
[2018-09-19] MEDS: LINAGLIPTIN 5 MG TABLET PO SCH (08:47)
[2018-09-19] MEDS: TAMSULOSIN (SR) 0.4 MG CAP PO SCH (08:47)
[2018-09-19] MEDS: METOPROLOL (XL) 50 MG TAB PO SCH (08:48)
[2018-09-19] MEDS: LISINOPRIL 20 MG TAB PO SCH (08:48)
[2018-09-19] MEDS: ENOXAPARIN 40 MG/0.4 ML SYG SC SCH (08:51)
[2018-09-19] MEDS: AZITHROMYCIN 250 MG TAB PO SCH (08:53)
[2018-09-19] MEDS: VENLAFAXINE 25 MG TAB PO SCH (08:54)
--- NOTE | 2018-09-19 11:08 | CONS ---
Assessment/Plan Assessment/Plan Assessment/Plan (Daily) Assessment and recommendations; 1. Patient admitted with severe asthma exacerbation and acute bronchitis with very little interval improvement despite very aggressive treatment regimen. 2. History of hypertension and diabetes. 3. Chronic pain syndrome. 4. BPH. Continue current supportive care. Consultation Date/Type/Reason Admit Date/Time Sep 15, 2018 at 17:27 Initial Consult Date 09/16/18 Type of Consult Pulmonary Patient is a pleasant 72-year-old gentleman who came into the hospital with a few days history of increased wheezing, coughing, production of white-yellow sputum. Upon evaluation patient has been diagnosed with asthma exacerbation and treated with appropriate modality regimen. Patient is reporting some improvement since admission. Patient does complain of chronic symptoms of asthma which apparently is poorly controlled on an outpatient basis. He does complain of frequent flareups as well. Patient however denies any high fever, chills, body aches or myalgias and also denies any sinus symptoms. Past medical history; 1. Asthma 2. Diabetes and hypertension. Medications; reviewed. Allergies; sulfa drugs. Social history; noncontributory. Family history; he is single, he does not have any children. No show any asthma in the family. Occupational history; patient is on disability. Review of systems; denies any headache, seizures, sinus symptoms. Any dysphagia. Any chest pain or angina. Complains of cough with wheezing as well as mild dyspnea on exertion. Denies any abdominal pain, nausea vomiting. Any melena or hematochezia. Any urinary symptoms. Denies any weight gain. Denies any orthopnea. Complains of occasional snoring and daytime sleepiness. General exam; elderly male, looks younger than age. Currently no distress. Laying comfortably in bed. Date/Time of Note DATE: 09/19/18 TIME: 11:07 24 HR Interval Summary Free Text/Dictation Patient's condition is essentially unchanged. She complains of wheezing and shortness of breath. General exam; elderly male, awake alert, currently no distress. Exam/Review of Systems Exam Vitals Vital Signs Date Temp Pulse Resp B/P (MAP) Pulse Ox O2 O2 Flow FiO2 Time Delivery Rate 09/19/18 83 08:13 09/19/18 25 93 Nasal 3.0 08:07 Cannula 09/19/18 98.6 107/71 07:15 (83) 09/19/18 30 03:56 Intake and Output 09/18/18 09/18/18 09/19/18 1515:00 23:00 07:00 IntakeIntake Total 1200 ml 600 ml BalanceBalance 1200 ml 600 ml Exam H EENT exam; supple neck, no JVD. No lymphadenopathy. Midline trachea. No thyromegaly. Patient has fair dentition. No neck masses. Chest exam; bilateral wheezing with diminished breath sounds throughout. S1-S2 audible, no murmurs. Regular rhythm. Abdomen exam; soft, protuberant. Nontender. Bowel sounds audible. Extremity exam; no peripheral edema. LITIGATION PARALEGAL exam; no focal deficit. Results Result Diagram: 09/17/18 0755 09/17/18 0755 Results 24hrs Laboratory Tests Test 09/18/18 11:51 09/18/18 17:30 09/18/18 20:23 09/19/18 08:33 Bedside Glucose 279 H 116 152 279 H Medications Medication Current Medications IV Flush (NS 3 ml) 3 ml PER PROTOCOL IV ; Start 09/15/18 at 20:00 Ondansetron HCl (Zofran Inj) 4 mg Q6H PRN IV NAUSEA/VOMITING; Start 09/15/18 at 20:00 Acetaminophen (Tylenol Tab) 650 mg Q6H PRN PO .PAIN 1-3 OR TEMP; Start 09/15/18 at 20:00 Acetaminophen/ Hydrocodone Bitart ([place] (5/325)) 1 tab Q6H PRN PO .MOD PAIN 4- 6 Last administered on 09/18/18at 22:03; Admin Dose 1 TAB; Start 09/15/18 at 20:00 Morphine Sulfate (morphine) 2 mg Q4H PRN IV .SEVERE PAIN 7-10 Last administered on 09/19/18at 00:08; Admin Dose 2 MG; Start 09/15/18 at 20:00 Docusate Sodium (Colace) 100 mg Q12H PRN PO .CONSTIPATION; Start 09/15/18 at 20:00 Zolpidem Tartrate (Ambien) 5 mg QHS PRN PO .INSOMNIA Last administered on 09/17/18at 00:08; Admin Dose 5 MG; Start 09/15/18 at 20:00 Enoxaparin Sodium (Lovenox) 40 mg DAILY SC Last administered on 6/12/19at 08:51; Admin Dose 40 MG; Start 09/16/18 at 09:00 Albuterol/ Ipratropium (Duoneb) 3 ml Q4H RESP THERAPY PRN HHN SHORTNESS OF BREATH Last administered on 09/19/18 01:39; Admin Dose 3 ML; Start 09/15/18 at 20:00 Atorvastatin Calcium (Lipitor) 20 mg QHS PO Last administered on 09/18/18 20:24; Admin Dose 20 MG; Start 09/15/18 at 21:00 Lisinopril (Zestril) 40 mg DAILY PO Last administered on 09/19/18 08:48; Admin Dose 40 MG; Start 09/16/18 at 09:00 Tamsulosin HCl (Flomax) 0.4 mg DAILY PO Last administered on 09/19/18 08:47; Admin Dose 0.4 MG; Start 09/16/18 at 09:00 Venlafaxine HCl (Effexor) 50 mg DAILY PO Last administered on 09/19/18 08:54; Admin Dose 50 MG; Start 09/16/18 at 09:00 Miscellaneous Information 1 ea NOTE XX ; Start 09/15/18 at 20:30 Glucose (Glutose) 15 gm Q15M PRN PO DECREASED GLUCOSE; Start 09/15/18 at 20:30 Glucose (Glutose) 22.5 gm Q15M PRN PO DECREASED GLUCOSE; Start 09/15/18 at 20:30 Dextrose (D50w Syringe) 25 ml Q15M PRN IV DECREASED GLUCOSE; Start 09/15/18 at 20:30 Dextrose (D50w Syringe) 50 ml Q15M PRN IV DECREASED GLUCOSE; Start 09/15/18 at 20:30 Glucagon (Glucagen) 1 mg Q15M PRN IM DECREASED GLUCOSE; Start 09/15/18 at 20:30 Glucose (Glutose) 15 gm Q15M PRN BUCCAL DECREASED GLUCOSE; Start 09/15/18 at 20:30 Budesonide (Pulmicort (Neb)) 0.5 mg BID RESP THERAPY HHN Last administered on 09/19/18 08:06; Admin Dose 0.5 MG; Start 09/16/18 at 09:30 Albuterol/ Ipratropium (Duoneb) 3 ml Q6HWA RESP THERAPY HHN Last administered on 09/19/18 08:06; Admin Dose 3 ML; Start 09/16/18 at 14:00 Azithromycin (Zithromax) 250 mg NOW PO Last administered on 09/19/18 08:53; Admin Dose 250 MG; Start 09/17/18 at 09:00; Stop 09/20/18 at 09:01 Insulin Aspart (Novolog Insulin Pen) NOVOLOG *MODERATE* ALGORITHM WITH MEALS BEDTIME SC Last administered on 09/19/18 08:37; Admin Dose 8 UNIT; Start 09/16/18 at 21:00 Insulin Aspart (Novolog Insulin Pen) 15 unit WITH MEALS SC Last administered on 09/19/18 08:37; Admin Dose 15 UNIT; Start 09/17/18 at 11:50 Insulin Glargine (Lantus) 30 units DAILY@2000 SC Last administered on 09/18/18 20:33; Admin Dose 30 UNITS; Start 09/17/18 at 20:00 Metoprolol Succinate (Toprol Xl) 50 mg DAILY PO Last administered on 09/19/18 08:48; Admin Dose 50 MG; Start 09/17/18 at 11:00 Alprazolam (Xanax) 1 mg Q8H PRN PO ANXIETY Last administered on 09/19/18 01:34; Admin Dose 1 MG; Start 09/17/18 at 15:30 Methylprednisolone Sodium Succinate (Solu-Medrol) 60 mg Q6 IV Last administered on 09/19/18 06:02; Admin Dose 60 MG; Start 09/18/18 at 12:00 Linagliptin (Tradjenta) 5 mg DAILY PO Last administered on 09/19/18 08:47; Admin Dose 5 MG; Start 09/18/18 at 13:00 SOTO HEMPHILL 12, 2019 11:08
--- NOTE | 2018-09-19 13:59 | PN ---
Date/Time of Note Date/Time of Note DATE: 09/19/18 TIME: 13:58 Assessment/Plan VTE Prophylaxis Risk score (from Nsg)>0 risk: 4 SCD applied (from Nsg): Yes Pharmacological prophylaxis: heparin Lines/Catheters IV Catheter Type (from Nrsg): Peripheral IV Urinary Cath still in place: No Assessment/Plan Hospital Course AOx3, pleasant comfortable Diffuse expiratory wheezing Nonlabored RRR A/p: 72 yo male wilth DMII, asthma presenting with acute asthma/COPD exacerbation - Very slow improvement. Still wheezy. Continue steroids, bronchodilators, azithromycin DMII - Titrate basal/bolus insulin Result Diagram: 09/17/18 0755 09/17/18 0755 Results 24hrs Laboratory Tests Test 09/18/18 17:30 09/18/18 20:23 09/19/18 08:33 09/19/18 12:28 Bedside Glucose 116 152 279 H 176 Subjective 24 Hr Interval Summary Free Text/Dictation Still very wheezy and SOB. Reports only mild improvement Exam/Review of Systems Exam Vitals Vital Signs Date Temp Pulse Resp B/P (MAP) Pulse Ox O2 O2 Flow FiO2 Time Delivery Rate 09/19/18 82 13:45 09/19/18 22 95 Nasal 3.0 13:11 Cannula 09/19/18 98.2 125/92 12:03 (103) 09/19/18 30 03:56 Intake and Output 09/18/18 09/18/18 09/19/18 1515:00 23:00 07:00 IntakeIntake Total 1200 ml 600 ml BalanceBalance 1200 ml 600 ml Results Results 24hrs Laboratory Tests Test 09/18/18 17:30 09/18/18 20:23 09/19/18 08:33 09/19/18 12:28 Bedside Glucose 116 152 279 H 176 Medications Medication Current Medications IV Flush (NS 3 ml) 3 ml PER PROTOCOL IV ; Start 09/15/18 at 20:00 Ondansetron HCl (Zofran Inj) 4 mg Q6H PRN IV NAUSEA/VOMITING; Start 09/15/18 at 20:00 Acetaminophen (Tylenol Tab) 650 mg Q6H PRN PO .PAIN 1-3 OR TEMP; Start 09/15/18 at 20:00 Acetaminophen/ Hydrocodone Bitart ([place] (5/325)) 1 tab Q6H PRN PO .MOD PAIN 4- 6 Last administered on 09/18/18 22:03; Admin Dose 1 TAB; Start 09/15/18 at 20:00 Morphine Sulfate (morphine) 2 mg Q4H PRN IV .SEVERE PAIN 7-10 Last administered on 09/19/18 00:08; Admin Dose 2 MG; Start 09/15/18 at 20:00 Docusate Sodium (Colace) 100 mg Q12H PRN PO .CONSTIPATION; Start 09/15/18 at 20:00 Zolpidem Tartrate (Ambien) 5 mg QHS PRN PO .INSOMNIA Last administered on 09/17/18 00:08; Admin Dose 5 MG; Start 09/15/18 at 20:00 Enoxaparin Sodium (Lovenox) 40 mg DAILY SC Last administered on 09/19/18 08:51; Admin Dose 40 MG; Start 09/16/18 at 09:00 Albuterol/ Ipratropium (Duoneb) 3 ml Q4H RESP THERAPY PRN HHN SHORTNESS OF BREATH Last administered on 09/19/18 01:39; Admin Dose 3 ML; Start 09/15/18 at 20:00 Atorvastatin Calcium (Lipitor) 20 mg QHS PO Last administered on 09/18/18 20:24; Admin Dose 20 MG; Start 09/15/18 at 21:00 Lisinopril (Zestril) 40 mg DAILY PO Last administered on 09/19/18 08:48; Admin Dose 40 MG; Start 09/16/18 at 09:00 Tamsulosin HCl (Flomax) 0.4 mg DAILY PO Last administered on 09/19/18 08:47; Admin Dose 0.4 MG; Start 09/16/18 at 09:00 Venlafaxine HCl (Effexor) 50 mg DAILY PO Last administered on 09/19/18 08:54; Admin Dose 50 MG; Start 09/16/18 at 09:00 Miscellaneous Information 1 ea NOTE XX ; Start 09/15/18 at 20:30 Glucose (Glutose) 15 gm Q15M PRN PO DECREASED GLUCOSE; Start 09/15/18 at 20:30 Glucose (Glutose) 22.5 gm Q15M PRN PO DECREASED GLUCOSE; Start 09/15/18 at 20:30 Dextrose (D50w Syringe) 25 ml Q15M PRN IV DECREASED GLUCOSE; Start 09/15/18 at 20:30 Dextrose (D50w Syringe) 50 ml Q15M PRN IV DECREASED GLUCOSE; Start 09/15/18 at 20:30 Glucagon (Glucagen) 1 mg Q15M PRN IM DECREASED GLUCOSE; Start 09/15/18 at 20:30 Glucose (Glutose) 15 gm Q15M PRN BUCCAL DECREASED GLUCOSE; Start 09/15/18 at 20:30 Budesonide (Pulmicort (Neb)) 0.5 mg BID RESP THERAPY HHN Last administered on 09/19/18 08:06; Admin Dose 0.5 MG; Start 09/16/18 at 09:30 Albuterol/ Ipratropium (Duoneb) 3 ml Q6HWA RESP THERAPY HHN Last administered on 09/19/18 13:11; Admin Dose 3 ML; Start 09/16/18 at 14:00 Azithromycin (Zithromax) 250 mg NOW PO Last administered on 09/19/18 08:53; Admin Dose 250 MG; Start 09/17/18 at 09:00; Stop 09/20/18 at 09:01 Insulin Aspart (Novolog Insulin Pen) NOVOLOG *MODERATE* ALGORITHM WITH MEALS BEDTIME SC Last administered on 09/19/18 12:39; Admin Dose 2 UNIT; Start 09/16/18 at 21:00 Insulin Aspart (Novolog Insulin Pen) 15 unit WITH MEALS SC Last administered on 09/19/18 12:40; Admin Dose 15 UNIT; Start 09/17/18 at 11:50 Insulin Glargine (Lantus) 30 units DAILY@2000 SC Last administered on 09/18/18 20:33; Admin Dose 30 UNITS; Start 09/17/18 at 20:00 Metoprolol Succinate (Toprol Xl) 50 mg DAILY PO Last administered on 09/19/18 08:48; Admin Dose 50 MG; Start 09/17/18 at 11:00 Alprazolam (Xanax) 1 mg Q8H PRN PO ANXIETY Last administered on 09/19/18 01:34; Admin Dose 1 MG; Start 09/17/18 at 15:30 Methylprednisolone Sodium Succinate (Solu-Medrol) 60 mg Q6 IV Last administered on 6/12/19at 12:30; Admin Dose 60 MG; Start 09/18/18 at 12:00 Linagliptin (Tradjenta) 5 mg DAILY PO Last administered on 09/19/18at 08:47; Admin Dose 5 MG; Start 09/18/18 at 13:00 BARBIE OBRIEN MD Sep 19, 2018 13:59
[2018-09-19] MEDS: HYDROCODONE/APAP (5/325) TAB PO PRN (20:06)
[2018-09-19] MEDS: ATORVASTATIN 20 MG TAB PO SCH (20:06)
[2018-09-19] MEDS: INSULIN GLARGINE [LANTus] (100 UNITS/ML) SYG SC SCH (20:10)
[2018-09-19] MEDS: ZOLPIDEM 5 MG TAB PO PRN (23:41)
[2018-09-20] VITALS (15 sets, daily range): BP systolic 121–179; BP diastolic 70–98; PULSE 60–154; RESP 18–22
[2018-09-20] MEDS: morphine 2 MG INJ IV PRN (01:55)
[2018-09-20] MEDS ORDERED: DILTIAZEM 25 MG INJ IV ONE (03:00)
[2018-09-20] MEDS ORDERED: LORAZEPAM 2 MG INJ IV ONE (03:00)
[2018-09-20] MEDS: METHYLPREDNISOLONE 125 MG INJ IV SCH ×4 (05:02→23:09)
[2018-09-20] MEDS: INSULIN ASPART [NOVOLOG] 3 ML PEN SC SCH ×7 (08:07→20:15)
[2018-09-20] MEDS: BUDESONIDE (NEB) 0.5MG/2ML AMP HHN SCH ×2 (08:30→20:09)
[2018-09-20] MEDS: ALBUTEROL/IPRATROPIUM (NEB) 3 ML AMP HHN SCH ×3 (08:30→20:09)
[2018-09-20] MEDS: ENOXAPARIN 40 MG/0.4 ML SYG SC SCH (08:49)
[2018-09-20] MEDS: TAMSULOSIN (SR) 0.4 MG CAP PO SCH (08:50)
[2018-09-20] MEDS: LISINOPRIL 20 MG TAB PO SCH (08:50)
[2018-09-20] MEDS: METOPROLOL (XL) 50 MG TAB PO SCH (08:51)
[2018-09-20] MEDS: LINAGLIPTIN 5 MG TABLET PO SCH (08:51)
[2018-09-20] MEDS: AZITHROMYCIN 250 MG TAB PO SCH (08:54)
[2018-09-20] MEDS: VENLAFAXINE 25 MG TAB PO SCH (09:43)
[2018-09-20] MEDS ORDERED: METOPROLOL (XL) 50 MG TAB PO SCH (11:00)
--- NOTE | 2018-09-20 11:08 | CONS ---
Assessment/Plan Assessment/Plan Assessment/Plan (Daily) Assessment and recommendations; 1. Patient admitted with severe asthma exacerbation with apparent suboptimally controlled asthma on an outpatient basis. Despite aggressive treatment patient is responding very slowly. 2. History of diabetes and hypertension. 3. Possibly sleep apnea. Continue supportive care and current treatment regimen. Consultation Date/Type/Reason Admit Date/Time Sep 15, 2018 at 17:27 Initial Consult Date 09/16/18 Type of Consult Pulmonary Patient is a pleasant 72-year-old gentleman who came into the hospital with a few days history of increased wheezing, coughing, production of white-yellow spu jeffry. Upon evaluation patient has been diagnosed with asthma exacerbation and treated with appropriate modality regimen. Patient is reporting some improvement since admission. Patient does complain of chronic symptoms of asthma which apparently is poorly controlled on an outpatient basis. He does complain of frequent flareups as well. Patient however denies any high fever, chills, body aches or myalgias and also denies any sinus symptoms. Past medical history; 1. Asthma 2. Diabetes and hypertension. Medications; reviewed. Allergies; sulfa drugs. Social history; noncontributory. Family history; he is single, he does not have any children. No show any asthma in the family. Occupational history; patient is on disability. Review of systems; denies any headache, seizures, sinus symptoms. Any dysphagia. Any chest pain or angina. Complains of cough with wheezing as well as mild dyspnea on exertion. Denies any abdominal pain, nausea vomiting. Any melena or hematochezia. Any urinary symptoms. Denies any weight gain. Denies any orthopnea. Complains of occasional snoring and daytime sleepiness. General exam; elderly male, looks younger than age. Currently no distress. [place] val[place] comfortably in bed. Date/Time of Note DATE: 09/20/18 TIME: 11:06 24 HR Interval Summary Free Text/Dictation Patient condition has mildly improved. Still complains of shortness of breath, with wheezing. General exam; elderly male, awake alert, currently in no distress. Exam/Review of Systems Exam Vitals Vital Signs Date Temp Pulse Resp B/P (MAP) Pulse Ox O2 O2 Flow FiO2 Time Delivery Rate 09/20/18 Nasal 2.0 09:14 Cannula 09/20/18 110 24 95 08:16 09/20/18 97.6 179/98 07:35 (125) 09/20/18 30 02:10 Intake and Output 09/19/18 09/19/18 09/20/18 1515:00 23:00 07:00 IntakeIntake Total 1200 ml 250 ml BalanceBalance 1200 ml 250 ml Exam H EENT exam; supple neck, no JVD. No lymphadenopathy. Midline trachea. No thyromegaly. Patient has good dentition. No neck masses. Chest exam; diminished breath sounds bilaterally with bilateral expiratory wheezing. S1-S2 audible, no murmurs. Regular rhythm. Abdomen exam; soft, protuberant. Nontender. No organomegaly. Bowel sounds are audible. Extremity exam; no peripheral edema clubbing. HEALTH INFORMATION TECH exam;no focal deficit. Results Result Diagram: 09/17/18 0755 09/17/18 0755 Results 24hrs Laboratory Tests Test 09/19/18 12:28 09/19/18 17:41 09/19/18 20:06 09/20/18 01:38 Bedside Glucose 176 162 153 234 H Test 09/20/18 08:00 Bedside Glucose 153 Medications Medication Current Medications IV Flush (NS 3 ml) 3 ml PER PROTOCOL IV ; Start 09/15/18 at 20:00 Ondansetron HCl (Zofran Inj) 4 mg Q6H PRN IV NAUSEA/VOMITING; Start 09/15/18 at 20:00 Acetaminophen (Tylenol Tab) 650 mg Q6H PRN PO .PAIN 1-3 OR TEMP; Start 09/15/18 at 20:00 Acetaminophen/ Hydrocodone Bitart ([place] (5/325)) 1 tab Q6H PRN PO .MOD PAIN 4-6 Last administered on 09/19/18at 20:06; Admin Dose 1 TAB; Start 09/15/18 at 20:00 Morphine Sulfate (morphine) 2 mg Q4H PRN IV .SEVERE PAIN 7-10 Last administered on 09/20/18at 01:55; Admin Dose 2 MG; Start 09/15/18 at 20:00 Docusate Sodium (Colace) 100 mg Q12H PRN PO .CONSTIPATION; Start 09/15/18 at 20 :00 Zolpidem Tartrate (Ambien) 5 mg QHS PRN PO .INSOMNIA Last administered on 09/19/18at 23:41; Admin Dose 5 MG; Start 09/15/18 at 20:00 Enoxaparin Sodium (Lovenox) 40 mg DAILY SC Last administered on 09/20/18at 08:49; Admin Dose 40 MG; Start 09/16/18 at 09:00 Albuterol/ Ipratropium (Duoneb) 3 ml Q4H RESP THERAPY PRN HHN SHORTNESS OF BREATH Last administered on 09/19/18at 01:39; Admin Dose 3 ML; Start 09/15/18 at 20:00 Atorvastatin Calcium (Lipitor) 20 mg QHS PO Last administered on 09/19/18at 20:0 6; Admin Dose 20 MG; Start 09/15/18 at 21:00 Lisinopril (Zestril) 40 mg DAILY PO Last administered on 09/20/18 08:50; Admin Dose 40 MG; Start 09/16/18 at 09:00 Tamsulosin HCl (Flomax) 0.4 mg DAILY PO Last administered on 09/20/18 08:50; Admin Dose 0.4 MG; Start 09/16/18 at 09:00 Venlafaxine HCl (Effexor) 50 mg DAILY PO Last administered on 09/20/18at 09:43; Admin Dose 50 MG; Start 09/16/18 at 09:00 Miscellaneous Information 1 ea NOTE XX ; Start 09/15/18 at 20:30 Glucose (Glutose) 15 gm Q15M PRN PO DECREASED GLUCOSE; Start 09/15/18 at 20:30 Glucose (Glutose) 22.5 gm Q15M PRN PO DECREASED GLUCOSE; Start 09/15/18 at 20:30 Dextrose (D50w Syringe) 25 ml Q15M PRN IV DECREASED GLUCOSE; Start 09/15/18 at 20:30 Dextrose (D50w Syringe) 50 ml Q15M PRN IV DECREASED GLUCOSE; Start 09/15/18 at 20:30 Glucagon (Glucagen) 1 mg Q15M PRN IM DECREASED GLUCOSE; Start 09/15/18 at 20:30 Glucose (Glutose) 15 gm Q15M PRN BUCCAL DECREASED GLUCOSE; Start 09/15/18 at 20:30 Budesonide (Pulmicort (Neb)) 0.5 mg BID RESP THERAPY HHN Last administered on 09/20/18at 08:30; Admin Dose 0.5 MG; Start 09/16/18 at 09:30 Albuterol/ Ipratropium (Duoneb) 3 ml Q6HWA RESP THERAPY HHN Last administered on 09/20/18 08:30; Admin Dose 3 ML; Start 09/16/18 at 14:00 Insulin Aspart (Novolog Insulin Pen) NOVOLOG *MODERATE* ALGORITHM WITH MEALS BEDTIME SC Last administered on 09/20/18 08:07; Admin Dose 2 UNIT; Start 09/16/18 at 21:00 Insulin Aspart (Novolog Insulin Pen) 15 unit WITH MEALS SC Last administered on 09/20/18 08:08; Admin Dose 15 UNIT; Start 09/17/18 at 11:50 Insulin Glargine (Lantus) 30 units DAILY@2000 SC Last administered on 09/19/18 20:10; Admin Dose 30 UNITS; Start 09/17/18 at 20:00 Metoprolol Succinate (Toprol Xl) 50 mg DAILY PO Last administered on 09/20/18 08:51; Admin Dose 50 MG; Start 09/17/18 at 11:00 Alprazolam (Xanax) 1 mg Q8H PRN PO ANXIETY Last administered on 09/19/18 01:34; Admin Dose 1 MG; Start 09/17/18 at 15:30 Methylprednisolone Sodium Succinate (Solu-Medrol) 60 mg Q6 IV Last administered on 09/20/18 05:02; Admin Dose 60 MG; Start 09/18/18 at 12:00 Linagliptin (Tradjenta) 5 mg DAILY PO Last administered on 09/20/18 08:51; Admin Dose 5 MG; Start 09/18/18 at 13:00 Metoprolol Succinate (Toprol Xl) 50 mg DAILY PO ; Start 09/20/18 at 11:00; Status CAROL HEMPHILL,SOTO Sep 20, 2018 11:08
[2018-09-20] MEDS ORDERED: METOPROLOL (XL) 50 MG TAB PO ONE ×2 (11:30)
--- NOTE | 2018-09-20 11:43 | PN ---
Date/Time of Note Date/Time of Note DATE: 09/20/18 TIME: 11:42 Assessment/Plan VTE Prophylaxis Risk score (from Nsg)>0 risk: 4 SCD applied (from Nsg): Yes Pharmacological prophylaxis: heparin Lines/Catheters IV Catheter Type (from Nrsg): Saline Lock Urinary Cath still in place: No Assessment/Plan Hospital Course AOx3, pleasant comfortable Diffuse expiratory wheezing Nonlabored Tachy, irreg, irreg A/p: 72 yo male wilth DMII, asthma presenting with acute asthma exacerbation - Very slow improvement. Still wheezy. Continue steroids, bronchodilators, azithromycin DMII - Titrate basal/bolus insulin A Fib: - Increase Toprol to 100 mg daily - Add AC at discharge Result Diagram: 09/17/18 0755 09/17/18 0755 Results 24hrs Laboratory Tests Test 09/19/18 12:28 09/19/18 17:41 09/19/18 20:06 09/20/18 01:38 Bedside Glucose 176 162 153 234 H Test 09/20/18 08:00 09/20/18 11:18 Bedside Glucose 153 240 H Subjective 24 Hr Interval Summary Free Text/Dictation A Fib with RVR overnight Still quite wheezy and SOB Exam/Review of Systems Exam Vitals Vital Signs Date Temp Pulse Resp B/P (MAP) Pulse Ox O2 O2 Flow FiO2 Time Delivery Rate 09/20/18 97.7 108 18 122/85 98 11:32 (97) 09/20/18 Nasal 2.0 09:14 Cannula 09/20/18 30 02:10 Intake and Output 09/19/18 09/19/18 09/20/18 1515:00 23:00 07:00 IntakeIntake Total 1200 ml 250 ml BalanceBalance 1200 ml 250 ml Results Results 24hrs Laboratory Tests Test 09/19/18 12:28 09/19/18 17:41 09/19/18 20:06 09/20/18 01:38 Bedside Glucose 176 162 153 234 H Test 09/20/18 08:00 09/20/18 11:18 Bedside Glucose 153 240 H Medications Medication Current Medications IV Flush (NS 3 ml) 3 ml PER PROTOCOL IV ; Start 09/15/18 at 20:00 Ondansetron HCl (Zofran Inj) 4 mg Q6H PRN IV NAUSEA/VOMITING; Start 09/15/18 at 20:00 Acetaminophen (Tylenol Tab) 650 mg Q6H PRN PO .PAIN 1-3 OR TEMP; Start 09/15/18 at 20:00 Acetaminophen/ Hydrocodone Bitart ([place] (5/325)) 1 tab Q6H PRN PO .MOD PAIN 4- 6 Last administered on 09/19/18 20:06; Admin Dose 1 TAB; Start 09/15/18 at 20:00 Morphine Sulfate (morphine) 2 mg Q4H PRN IV .SEVERE PAIN 7-10 Last administered on 09/20/18 01:55; Admin Dose 2 MG; Start 09/15/18 at 20:00 Docusate Sodium (Colace) 100 mg Q12H PRN PO .CONSTIPATION; Start 09/15/18 at 20:00 Zolpidem Tartrate (Ambien) 5 mg QHS PRN PO .INSOMNIA Last administered on 09/19/18 23:41; Admin Dose 5 MG; Start 09/15/18 at 20:00 Enoxaparin Sodium (Lovenox) 40 mg DAILY SC Last administered on 09/20/18 08:49; Admin Dose 40 MG; Start 09/16/18 at 09:00 Albuterol/ Ipratropium (Duoneb) 3 ml Q4H RESP THERAPY PRN HHN SHORTNESS OF BREATH Last administered on 09/19/18 01:39; Admin Dose 3 ML; Start 09/15/18 at 20:00 Atorvastatin Calcium (Lipitor) 20 mg QHS PO Last administered on 09/19/18 20:06; Admin Dose 20 MG; Start 09/15/18 at 21:00 Lisinopril (Zestril) 40 mg DAILY PO Last administered on 09/20/18 08:50; Admin Dose 40 MG; Start 09/16/18 at 09:00 Tamsulosin HCl (Flomax) 0.4 mg DAILY PO Last administered on 09/20/18 08:50; Admin Dose 0.4 MG; Start 09/16/18 at 09:00 Venlafaxine HCl (Effexor) 50 mg DAILY PO Last administered on 09/20/18 09:43; Admin Dose 50 MG; Start 09/16/18 at 09:00 Miscellaneous Information 1 ea NOTE XX ; Start 09/15/18 at 20:30 Glucose (Glutose) 15 gm Q15M PRN PO DECREASED GLUCOSE; Start 09/15/18 at 20:30 Glucose (Glutose) 22.5 gm Q15M PRN PO DECREASED GLUCOSE; Start 09/15/18 at 20:30 Dextrose (D50w Syringe) 25 ml Q15M PRN IV DECREASED GLUCOSE; Start 09/15/18 at 20:30 Dextrose (D50w Syringe) 50 ml Q15M PRN IV DECREASED GLUCOSE; Start 09/15/18 at 20:30 Glucagon (Glucagen) 1 mg Q15M PRN IM DECREASED GLUCOSE; Start 09/15/18 at 20:30 Glucose (Glutose) 15 gm Q15M PRN BUCCAL DECREASED GLUCOSE; Start 09/15/18 at 20:30 Budesonide (Pulmicort (Neb)) 0.5 mg BID RESP THERAPY HHN Last administered on 09/20/18 08:30; Admin Dose 0.5 MG; Start 09/16/18 at 09:30 Albuterol/ Ipratropium (Duoneb) 3 ml Q6HWA RESP THERAPY HHN Last administered on 09/20/18 08:30; Admin Dose 3 ML; Start 09/16/18 at 14:00 Insulin Aspart (Novolog Insulin Pen) NOVOLOG *MODERATE* ALGORITHM WITH MEALS BEDTIME SC Last administered on 09/20/18 08:07; Admin Dose 2 UNIT; Start 09/16/18 at 21:00 Insulin Aspart (Novolog Insulin Pen) 15 unit WITH MEALS SC Last administered on 09/20/18 08:08; Admin Dose 15 UNIT; Start 09/17/18 at 11:50 Insulin Glargine (Lantus) 30 units DAILY@2000 SC Last administered on 09/19/18 20:10; Admin Dose 30 UNITS; Start 09/17/18 at 20:00 Alprazolam (Xanax) 1 mg Q8H PRN PO ANXIETY Last administered on 09/19/18 01:34; Admin Dose 1 MG; Start 09/17/18 at 15:30 Methylprednisolone Sodium Succinate (Solu-Medrol) 60 mg Q6 IV Last administered on 09/20/18 05:02; Admin Dose 60 MG; Start 09/18/18 at 12:00 Linagliptin (Tradjenta) 5 mg DAILY PO Last administered on 6/13/19at 08:51; Admin Dose 5 MG; Start 09/18/18 at 13:00 Metoprolol Succinate (Toprol Xl) 100 mg DAILY PO ; Start 09/21/18 at 09:00 BARBIE OBRIEN MD Sep 20, 2018 11:43
[2018-09-20] MEDS: ATORVASTATIN 20 MG TAB PO SCH (20:15)
[2018-09-20] MEDS: INSULIN GLARGINE [LANTus] (100 UNITS/ML) SYG SC SCH (20:18)
[2018-09-20] MEDS: ALBUTEROL/IPRATROPIUM (NEB) 3 ML AMP HHN PRN (23:19)
[2018-09-21] VITALS (13 sets, daily range): BP systolic 123–147; BP diastolic 67–87; PULSE 56–87; RESP 18–22
[2018-09-21] MEDS: METHYLPREDNISOLONE 125 MG INJ IV SCH ×3 (05:34→17:22)
[2018-09-21] MEDS: INSULIN ASPART [NOVOLOG] 3 ML PEN SC SCH ×7 (08:09→20:14)
[2018-09-21] MEDS: BUDESONIDE (NEB) 0.5MG/2ML AMP HHN SCH ×2 (08:36→19:48)
[2018-09-21] MEDS: ALBUTEROL/IPRATROPIUM (NEB) 3 ML AMP HHN SCH ×3 (08:36→19:48)
[2018-09-21] MEDS: METOPROLOL (XL) 50 MG TAB PO SCH (08:50)
[2018-09-21] MEDS: LINAGLIPTIN 5 MG TABLET PO SCH (08:51)
[2018-09-21] MEDS: VENLAFAXINE 25 MG TAB PO SCH (08:51)
[2018-09-21] MEDS: LISINOPRIL 20 MG TAB PO SCH (08:51)
[2018-09-21] MEDS: TAMSULOSIN (SR) 0.4 MG CAP PO SCH (08:51)
[2018-09-21] MEDS: ENOXAPARIN 40 MG/0.4 ML SYG SC SCH (08:55)
--- NOTE | 2018-09-21 11:53 | CONS ---
Consultation Date/Type/Reason Admit Date/Time Sep 15, 2018 at 17:27 Initial Consult Date 09/16/18 Type of Consult Pulmonary Patient is a pleasant 72-year-old gentleman who came into the hospital with a few days history of increased wheezing, coughing, production of white-yellow sputum. Upon evaluation patient has been diagnosed with asthma exacerbation and treated with appropriate modality regimen. Patient is reporting some improvement since admission. Patient does complain of chronic symptoms of asthma which apparently is poorly controlled on an outpatient basis. He does complain of frequent flareups as well. Patient however denies any high fever, chills, body aches or myalgias and also denies any sinus symptoms. Past medical history; 1. Asthma 2. Diabetes and hypertension. Medications; reviewed. Allergies; sulfa drugs. Social history; noncontributory. Family history; he is single, he does not have any children. No show any asthma in the family. Occupational history; patient is on disability. Review of systems; denies any headache, seizures, sinus symptoms. Any dysphagia. Any chest pain or angina. Complains of cough with wheezing as well as mild dyspnea on exertion. Denies any abdominal pain, nausea vomiting. Any melena or hematochezia. Any urinary symptoms. Denies any weight gain. Denies any orthopnea. Complains of occasional snoring and daytime sleepiness. General exam; elderly male, looks younger than age. Currently no distress. Laying comfortably in bed. Date/Time of Note DATE: 09/21/18 TIME: 11:52 24 HR Interval Summary Free Text/Dictation Patient's condition is markedly improved over the last 24 hours. Reports sig nificant reduction in wheezing and shortness of breath. General exam; elderly male, awake alert, currently in no distress. H EENT exam; supple neck, no JVD. No lymphadenopathy. Midline trachea. No thyromegaly. No neck masses. Patient has good dentition. Chest exam; diminished breath sounds bilaterally without any wheezing. S1-S2 audible, no murmurs. Regular rhythm. Abdomen exam; soft, protuberant. Nontender. No organomegaly. Bowel sounds are audible. Extremity exam; no peripheral edema clubbing. [employer] exam; no focal deficit. Assessment and recommendations; 1. Patient admitted with severe asthma exacerbation with Interval improvement over the last 24 hours. Patient currently on aggressive bronchodilator regimen. 2. Apparently poorly controlled asthma on an outpatient basis. 3. History of diabetes and hypertension. 4. Possible underlying sleep apnea. Continue current supportive care. Steroid taper in 24 hours as dictated by clinical status. Exam/Review of Systems Exam Vitals Vital Signs Date Temp Pulse Resp B/P (MAP) Pulse Ox O2 O2 Flow FiO2 Time Delivery Rate 09/21/18 79 22 95 Nasal 2.0 08:36 Cannula 09/21/18 97.8 146/67 07:31 (93) 09/21/18 30 01:14 Intake and Output 09/20/18 09/20/18 09/21/18 1515:00 23:00 07:00 IntakeIntake Total 1050 ml BalanceBalance 1050 ml Results Result Diagram: 09/17/18 0755 09/17/18 0755 Results 24hrs Laboratory Tests Test 09/20/18 17:04 09/20/18 20:14 09/21/18 08:04 09/21/18 11:26 Bedside Glucose 100 175 252 H 120 Medications Medication Current Medications IV Flush (NS 3 ml) 3 ml PER PROTOCOL IV ; Start 09/15/18 at 20:00 Ondansetron HCl (Zofran Inj) 4 mg Q6H PRN IV NAUSEA/VOMITING; Start 09/15/18 at 20:00 Acetaminophen (Tylenol Tab) 650 mg Q6H PRN PO .PAIN 1-3 OR TEMP; Start 09/15/18 at 20:00 Acetaminophen/ Hydrocodone Bitart ([place] (5/325)) 1 tab Q6H PRN PO .MOD PAIN 4- 6 Last administered on 09/19/18at 20:06; Admin Dose 1 TAB; Start 09/15/18 at 20:00 Morphine Sulfate (morphine) 2 mg Q4H PRN IV .SEVERE PAIN 7-10 Last administered on 09/20/18at 01:55; Admin Dose 2 MG; Start 09/15/18 at 20:00 Docusate Sodium (Colace) 100 mg Q12H PRN PO .CONSTIPATION; Start 09/15/18 at 20:00 Zolpidem Tartrate (Ambien) 5 mg QHS PRN PO .INSOMNIA Last administered on 09/19/18at 23:41; Admin Dose 5 MG; Start 09/15/18 at 20:00 Enoxaparin Sodium (Lovenox) 40 mg DAILY SC Last administered on 09/21/18 08:55; Admin Dose 40 MG; Start 09/16/18 at 09:00 Albuterol/ Ipratropium (Duoneb) 3 ml Q4H RESP THERAPY PRN HHN SHORTNESS OF BREATH Last administered on 09/20/18 23:19; Admin Dose 3 ML; Start 09/15/18 at 20:00 Atorvastatin Calcium (Lipitor) 20 mg QHS PO Last administered on 09/20/18 20:15; Admin Dose 20 MG; Start 09/15/18 at 21:00 Lisinopril (Zestril) 40 mg DAILY PO Last administered on 09/21/18 08:51; Admin Dose 40 MG; Start 09/16/18 at 09:00 Tamsulosin HCl (Flomax) 0.4 mg DAILY PO Last administered on 09/21/18 08:51; Admin Dose 0.4 MG; Start 09/16/18 at 09:00 Venlafaxine HCl (Effexor) 50 mg DAILY PO Last administered on 09/21/18 08:51; Admin Dose 50 MG; Start 09/16/18 at 09:00 Miscellaneous Information 1 ea NOTE XX ; Start 09/15/18 at 20:30 Glucose (Glutose) 15 gm Q15M PRN PO DECREASED GLUCOSE; Start 09/15/18 at 20:30 Glucose (Glutose) 22.5 gm Q15M PRN PO DECREASED GLUCOSE; Start 09/15/18 at 20:30 Dextrose (D50w Syringe) 25 ml Q15M PRN IV DECREASED GLUCOSE; Start 09/15/18 at 20:30 Dextrose (D50w Syringe) 50 ml Q15M PRN IV DECREASED GLUCOSE; Start 09/15/18 at 20:30 Glucagon (Glucagen) 1 mg Q15M PRN IM DECREASED GLUCOSE; Start 09/15/18 at 20:30 Glucose (Glutose) 15 gm Q15M PRN BUCCAL DECREASED GLUCOSE; Start 09/15/18 at 20:30 Budesonide (Pulmicort (Neb)) 0.5 mg BID RESP THERAPY HHN Last administered on 09/21/18 08:36; Admin Dose 0.5 MG; Start 09/16/18 at 09:30 Albuterol/ Ipratropium (Duoneb) 3 ml Q6HWA RESP THERAPY HHN Last administered on 09/21/18 08:36; Admin Dose 3 ML; Start 09/16/18 at 14:00 Insulin Aspart (Novolog Insulin Pen) NOVOLOG *MODERATE* ALGORITHM WITH MEALS BEDTIME SC Last administered on 09/21/18 08:09; Admin Dose 6 UNIT; Start 09/16/18 at 21:00 Insulin Aspart (Novolog Insulin Pen) 15 unit WITH MEALS SC Last administered on 09/21/18 11:30; Admin Dose 15 UNIT; Start 09/17/18 at 11:50 Insulin Glargine (Lantus) 30 units DAILY@2000 SC Last administered on 09/20/18 20:18; Admin Dose 30 UNITS; Start 09/17/18 at 20:00 Alprazolam (Xanax) 1 mg Q8H PRN PO ANXIETY Last administered on 09/19/18 01:34; Admin Dose 1 MG; Start 09/17/18 at 15:30 Methylprednisolone Sodium Succinate (Solu-Medrol) 60 mg Q6 IV Last administered on 09/21/18 05:34; Admin Dose 60 MG; Start 09/18/18 at 12:00 Linagliptin (Tradjenta) 5 mg DAILY PO Last administered on 09/21/18 08:51; Admin Dose 5 MG; Start 09/18/18 at 13:00 Metoprolol Succinate (Toprol Xl) 100 mg DAILY PO Last administered on 09/21/18 08:50; Admin Dose 100 MG; Start 09/21/18 at 09:00 SOTO HEMPHILL Sep 21, 2018 11:53
--- NOTE | 2018-09-21 12:12 | PN ---
Date/Time of Note Date/Time of Note DATE: 09/21/18 TIME: 12:12 Assessment/Plan VTE Prophylaxis Risk score (from Nsg)>0 risk: 3 SCD applied (from Nsg): Yes Pharmacological prophylaxis: heparin Lines/Catheters IV Catheter Type (from Nrsg): Saline Lock Urinary Cath still in place: No Assessment/Plan Hospital Course AOx3, pleasant comfortable Diffuse expiratory wheezing Nonlabored Tachy, irreg, irreg A/p: 72 yo male wilth DMII, asthma presenting with acute asthma exacerbation - Very slow improvement. Still wheezy. Continue steroids, bronchodilators, azithromycin DMII - Titrate basal/bolus insulin A Fib: - Increase Toprol to 100 mg daily - Add AC at discharge Result Diagram: 09/17/18 0755 09/17/18 0755 Results 24hrs Laboratory Tests Test 09/20/18 17:04 09/20/18 20:14 09/21/18 08:04 09/21/18 11:26 Bedside Glucose 100 175 252 H 120 Subjective 24 Hr Interval Summary Free Text/Dictation Slowly improving less SOB today Exam/Review of Systems Exam Vitals Vital Signs Date Temp Pulse Resp B/P (MAP) Pulse Ox O2 O2 Flow FiO2 Time Delivery Rate 09/21/18 74 12:05 09/21/18 98.0 22 125/81 96 Nasal 2.0 11:51 (96) Cannula 09/21/18 30 01:14 Intake and Output 09/20/18 09/20/18 09/21/18 1515:00 23:00 07:00 IntakeIntake Total 1050 ml BalanceBalance 1050 ml Results Results 24hrs Laboratory Tests Test 09/20/18 17:04 09/20/18 20:14 09/21/18 08:04 09/21/18 11:26 Bedside Glucose 100 175 252 H 120 Medications Medication Current Medications IV Flush (NS 3 ml) 3 ml PER PROTOCOL IV ; Start 09/15/18 at 20:00 Ondansetron HCl (Zofran Inj) 4 mg Q6H PRN IV NAUSEA/VOMITING; Start 09/15/18 at 20:00 Acetaminophen (Tylenol Tab) 650 mg Q6H PRN PO .PAIN 1-3 OR TEMP; Start 09/15/18 at 20:00 Acetaminophen/ Hydrocodone Bitart ([place] (5/325)) 1 tab Q6H PRN PO .MOD PAIN 4- 6 Last administered on 09/19/18 20:06; Admin Dose 1 TAB; Start 09/15/18 at 20:00 Morphine Sulfate (morphine) 2 mg Q4H PRN IV .SEVERE PAIN 7-10 Last administered on 09/20/18 01:55; Admin Dose 2 MG; Start 09/15/18 at 20:00 Docusate Sodium (Colace) 100 mg Q12H PRN PO .CONSTIPATION; Start 09/15/18 at 20:00 Zolpidem Tartrate (Ambien) 5 mg QHS PRN PO .INSOMNIA Last administered on 23:41; Admin Dose 5 MG; Start 09/15/18 at 20:00 Enoxaparin Sodium (Lovenox) 40 mg DAILY SC Last administered on 09/21/18 08:55; Admin Dose 40 MG; Start 09/16/18 at 09:00 Albuterol/ Ipratropium (Duoneb) 3 ml Q4H RESP THERAPY PRN HHN SHORTNESS OF BREATH Last administered on 09/20/18 23:19; Admin Dose 3 ML; Start 09/15/18 at 20:00 Atorvastatin Calcium (Lipitor) 20 mg QHS PO Last administered on 09/20/18 20:15; Admin Dose 20 MG; Start 09/15/18 at 21:00 Lisinopril (Zestril) 40 mg DAILY PO Last administered on 09/21/18 08:51; Admin Dose 40 MG; Start 09/16/18 at 09:00 Tamsulosin HCl (Flomax) 0.4 mg DAILY PO Last administered on 09/21/18 08:51; Admin Dose 0.4 MG; Start 09/16/18 at 09:00 Venlafaxine HCl (Effexor) 50 mg DAILY PO Last administered on 09/21/18 08:51; Admin Dose 50 MG; Start 09/16/18 at 09:00 Miscellaneous Information 1 ea NOTE XX ; Start 09/15/18 at 20:30 Glucose (Glutose) 15 gm Q15M PRN PO DECREASED GLUCOSE; Start 09/15/18 at 20:30 Glucose (Glutose) 22.5 gm Q15M PRN PO DECREASED GLUCOSE; Start 09/15/18 at 20:30 Dextrose (D50w Syringe) 25 ml Q15M PRN IV DECREASED GLUCOSE; Start 09/15/18 at 20:30 Dextrose (D50w Syringe) 50 ml Q15M PRN IV DECREASED GLUCOSE; Start 09/15/18 at 20:30 Glucagon (Glucagen) 1 mg Q15M PRN IM DECREASED GLUCOSE; Start 09/15/18 at 20:30 Glucose (Glutose) 15 gm Q15M PRN BUCCAL DECREASED GLUCOSE; Start 09/15/18 at 20:30 Budesonide (Pulmicort (Neb)) 0.5 mg BID RESP THERAPY HHN Last administered on 09/21/18 08:36; Admin Dose 0.5 MG; Start 09/16/18 at 09:30 Albuterol/ Ipratropium (Duoneb) 3 ml Q6HWA RESP THERAPY HHN Last administered on 09/21/18 08:36; Admin Dose 3 ML; Start 09/16/18 at 14:00 Insulin Aspart (Novolog Insulin Pen) NOVOLOG *MODERATE* ALGORITHM WITH MEALS BEDTIME SC Last administered on 09/21/18 08:09; Admin Dose 6 UNIT; Start 09/16/18 at 21:00 Insulin Aspart (Novolog Insulin Pen) 15 unit WITH MEALS SC Last administered on 09/21/18 11:30; Admin Dose 15 UNIT; Start 09/17/18 at 11:50 Insulin Glargine (Lantus) 30 units DAILY@2000 SC Last administered on 09/20/18 20:18; Admin Dose 30 UNITS; Start 09/17/18 at 20:00 Alprazolam (Xanax) 1 mg Q8H PRN PO ANXIETY Last administered on 09/19/18 01:34; Admin Dose 1 MG; Start 09/17/18 at 15:30 Methylprednisolone Sodium Succinate (Solu-Medrol) 60 mg Q6 IV Last administered on 09/21/18 05:34; Admin Dose 60 MG; Start 09/18/18 at 12:00 Linagliptin (Tradjenta) 5 mg DAILY PO Last administered on 09/21/18 08:51; Admin Dose 5 MG; Start 09/18/18 at 13:00 Metoprolol Succinate (Toprol Xl) 100 mg DAILY PO Last administered on 09/21/18 08:50; Admin Dose 100 MG; Start 09/21/18 at 09:00 BARBIE OBRIEN MD Sep 21, 2018 12:12
[2018-09-21] MEDS: ATORVASTATIN 20 MG TAB PO SCH (20:06)
[2018-09-21] MEDS: INSULIN GLARGINE [LANTus] (100 UNITS/ML) SYG SC SCH (20:14)
[2018-09-21] MEDS: ZOLPIDEM 5 MG TAB PO PRN (21:57)
[2018-09-22] VITALS (9 sets, daily range): BP systolic 122–140; BP diastolic 78–95; PULSE 60–89; RESP 19–20
[2018-09-22] MEDS: METHYLPREDNISOLONE 125 MG INJ IV SCH ×3 (00:11→11:58)
[2018-09-22] MEDS: ALPRAZOLAM 1 MG TAB PO PRN (04:49)
[2018-09-22] MEDS: TAMSULOSIN (SR) 0.4 MG CAP PO SCH (08:08)
[2018-09-22] MEDS: LINAGLIPTIN 5 MG TABLET PO SCH (08:09)
[2018-09-22] MEDS: VENLAFAXINE 25 MG TAB PO SCH (08:09)
[2018-09-22] MEDS: METOPROLOL (XL) 50 MG TAB PO SCH (08:10)
[2018-09-22] MEDS: LISINOPRIL 20 MG TAB PO SCH (08:10)
[2018-09-22] MEDS: ALBUTEROL/IPRATROPIUM (NEB) 3 ML AMP HHN SCH ×2 (08:16→13:42)
[2018-09-22] MEDS: BUDESONIDE (NEB) 0.5MG/2ML AMP HHN SCH (08:17)
[2018-09-22] MEDS: INSULIN ASPART [NOVOLOG] 3 ML PEN SC SCH ×6 (08:19→17:26)
[2018-09-22] MEDS: ENOXAPARIN 40 MG/0.4 ML SYG SC SCH (08:20)
[2018-09-22] MEDS ORDERED: PRED50 PO (11:46)
[2018-09-22] MEDS ORDERED: LEVA15HF6 INH (11:46)
[2018-09-22] MEDS ORDERED: BUDE6HFA INHALATION (11:46)
--- NOTE | 2018-09-22 11:49 | PDOCDIS ---
Discharge Instructions DIAGNOSIS Discharge Diagnosis Asthma exacerbation CONDITION [id number] Patient Condition: [id number] Stable FOLLOW UP/APPOINTMENTS Follow-up Plan Make an appointment to see your doctor. You should see a x ray technician to manage you asthma fci. You can make an appointment with Dr Wood at office number [phone] Take your medications everyday as prescribed Return to the emergency room if you are having any trouble breathing BARBIE OBRIEN MD Sep 22, 2018 11:49
--- NOTE | 2018-09-22 13:23 | DS ---
Date/Time of Note Date/Time of Note DATE: 09/22/18 TIME: 13:21 Discharge Summary Admission/Discharge Info Admit Date/Time Sep 15, 2018 at 17:27 Discharge Date/Time Discharge Diagnosis Asthma exacerbation Patient Condition: Stable Hospital Course The patient was found to be in acute asthma exacerbation. He was treated with bronchodilators and steroids and his respiratory status very slowly improved. He did have an episode of atrial fibrillation requring IV beta blockers. He is aware of atrial fibrillation and has discussed this with his doctor before. He will discuss anticoagulation as an outpatient. His respiratory status was not quite back to baseline but he very much wanted to be discharged today. I gave him a few more days of prednisone as well as symbicort and rescue inhaler Home Meds Reported Medications Levalbuterol* (Xopenex* HFA) 15 Gm Inha, 2 PUFFS INH Q4H PRN for WHEEZING AND SOB, INHALER 09/15/18 Atorvastatin Calcium* (Atorvastatin Calcium*) 20 Mg Tablet, 20 MG PO QHS, #30 TAB 09/15/18 Furosemide* (Furosemide*) 20 Mg Tablet, 20 MG PO DAILY, #60 TAB 09/15/18 Venlafaxine Hcl* (Venlafaxine Hcl*) 50 Mg Tablet, 50 MG PO DAILY, TAB 09/15/18 Sitagliptin* (Januvia*) 100 Mg Tablet, 100 MG PO DAILY, #30 TAB 09/15/18 Lisinopril* (Lisinopril*) 40 Mg Tablet, 40 MG PO DAILY, #30 TAB 09/15/18 Tamsulosin Hcl* (Flomax*) 0.4 Mg Cap.er.24h, 0.4 MG PO DAILY, CAP 09/15/18 Follow-up Plan Make an appointment to see your doctor. 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 You can make an appointment with Dr Wood at office number [phone] Take your medications everyday as prescribed Return to the emergency room if you are having any trouble breathing Primary Care Provider Not On Staff Doctor Pending Labs Laboratory Tests Test 09/21/18 17:12 09/21/18 20:05 09/22/18 08:06 09/22/18 11:58 Bedside 182 221 313 199 Glucose mg/dL (70-220) mg/dL (70-220) mg/dL (70-220) mg/dL (70-220) BARBIE OBRIEN MD Sep 22, 2018 13:23
--- NOTE | 2018-09-22 16:42 | CONS ---
Consult Date/Type/Reason Admit Date/Time Sep 15, 2018 at 17:27 Initial Consult Date 09/16/18 Type of Consultation: Pulm Date/Time of Note DATE: 09/22/18 TIME: 16:39 Subjective Asleep at time of visit. No events per RN. Objective Vitals Vital Signs Date Temp Pulse Resp B/P (MAP) Pulse Ox O2 O2 Flow FiO2 Time Delivery Rate 09/22/18 71 16:03 09/22/18 97.8 20 131/78 94 Room Air 15:05 (95) 09/22/18 2.0 14:06 09/21/18 30 23:35 Intake and Output 09/21/18 09/21/18 09/22/18 1515:00 23:00 07:00 IntakeIntake Total 900 ml 700 ml BalanceBalance 900 ml 700 ml Exam HEENT: Neck supple; no JVD; no LAD CVS: Irreg irreg S1 and S2 CHEST: Occ wheezing ABD: Soft, NT, + BS EXT: No c/c/e Results/Medications Results 24 hrs Laboratory Tests Test 09/21/18 17:12 09/21/18 20:05 09/22/18 08:06 09/22/18 11:58 Bedside Glucose 182 221 H 313 H 199 Home Meds Reported Medications Levalbuterol* (Xopenex* HFA) 15 Gm Inha, 2 PUFFS INH Q4H PRN for WHEEZING AND SO B, INHALER 09/15/18 Atorvastatin Calcium* (Atorvastatin Calcium*) 20 Mg Tablet, 20 MG PO QHS, #30 TAB 09/15/18 Furosemide* (Furosemide*) 20 Mg Tablet, 20 MG PO DAILY, #60 TAB 09/15/18 Venlafaxine Hcl* (Venlafaxine Hcl*) 50 Mg Tablet, 50 MG PO DAILY, TAB 09/15/18 Sitagliptin* (Januvia*) 100 Mg Tablet, 100 MG PO DAILY, #30 TAB 09/15/18 Lisinopril* (Lisinopril*) 40 Mg Tablet, 40 MG PO DAILY, #30 TAB 09/15/18 Tamsulosin Hcl* (Flomax*) 0.4 Mg Cap.er.24h, 0.4 MG PO DAILY, CAP 09/15/18 Medications Current Medications IV Flush (NS 3 ml) 3 ml PER PROTOCOL IV ; Start 09/15/18 at 20:00 Ondansetron HCl (Zofran Inj) 4 mg Q6H PRN IV NAUSEA/VOMITING; Start 09/15/18 at 20:00 Acetaminophen (Tylenol Tab) 650 mg Q6H PRN PO .PAIN 1-3 OR TEMP; Start 09/15/18 at 20:00 Acetaminophen/ Hydrocodone Bitart ([place] (5/325)) 1 tab Q6H PRN PO .MOD PAIN 4- 6 Last administered on 09/19/18 20:06; Admin Dose 1 TAB; Start 09/15/18 at 20:00 Morphine Sulfate (morphine) 2 mg Q4H PRN IV .SEVERE PAIN 7-10 Last administered on 09/20/18 01:55; Admin Dose 2 MG; Start 09/15/18 at 20:00 Docusate Sodium (Colace) 100 mg Q12H PRN PO .CONSTIPATION; Start 09/15/18 at 20:00 Zolpidem Tartrate (Ambien) 5 mg QHS PRN PO .INSOMNIA Last administered on 09/21/18 21:57; Admin Dose 5 MG; Start 09/15/18 at 20:00 Enoxaparin Sodium (Lovenox) 40 mg DAILY SC Last administered on 09/22/18 08:20; Admin Dose 40 MG; Start 09/16/18 at 09:00 Albuterol/ Ipratropium (Duoneb) 3 ml Q4H RESP THERAPY PRN HHN SHORTNESS OF BREATH Last administered on 09/20/18 23:19; Admin Dose 3 ML; Start 09/15/18 at 20:00 Atorvastatin Calcium (Lipitor) 20 mg QHS PO Last administered on 09/21/18 20:06; Admin Dose 20 MG; Start 09/15/18 at 21:00 Lisinopril (Zestril) 40 mg DAILY PO Last administered on 09/22/18 08:10; Admin Dose 40 MG; Start 09/16/18 at 09:00 Tamsulosin HCl (Flomax) 0.4 mg DAILY PO Last administered on 09/22/18 08:08; Admin Dose 0.4 MG; Start 09/16/18 at 09:00 Venlafaxine HCl (Effexor) 50 mg DAILY PO Last administered on 09/22/18 08:09; Admin Dose 50 MG; Start 09/16/18 at 09:00 Miscellaneous Information 1 ea NOTE XX ; Start 09/15/18 at 20:30 Glucose (Glutose) 15 gm Q15M PRN PO DECREASED GLUCOSE; Start 09/15/18 at 20:30 Glucose (Glutose) 22.5 gm Q15M PRN PO DECREASED GLUCOSE; Start 09/15/18 at 20:30 Dextrose (D50w Syringe) 25 ml Q15M PRN IV DECREASED GLUCOSE; Start 09/15/18 at 20:30 Dextrose (D50w Syringe) 50 ml Q15M PRN IV DECREASED GLUCOSE; Start 09/15/18 at 20:30 Glucagon (Glucagen) 1 mg Q15M PRN IM DECREASED GLUCOSE; Start 09/15/18 at 20:30 Glucose (Glutose) 15 gm Q15M PRN BUCCAL DECREASED GLUCOSE; Start 09/15/18 at 20:30 Budesonide (Pulmicort (Neb)) 0.5 mg BID RESP THERAPY HHN Last administered on 09/22/18 08:17; Admin Dose 0.5 MG; Start 09/16/18 at 09:30 Albuterol/ Ipratropium (Duoneb) 3 ml Q6HWA RESP THERAPY HHN Last administered on 09/22/18 13:42; Admin Dose 3 ML; Start 09/16/18 at 14:00 Insulin Aspart (Novolog Insulin Pen) NOVOLOG *MODERATE* ALGORITHM WITH MEALS BEDTIME SC Last administered on 09/22/18 12:22; Admin Dose 4 UNIT; Start 09/16/18 at 21:00 Insulin Aspart (Novolog Insulin Pen) 15 unit WITH MEALS SC Last administered on 09/22/18 12:24; Admin Dose 15 UNIT; Start 09/17/18 at 11:50 Insulin Glargine (Lantus) 30 units DAILY@2000 SC Last administered on 09/21/18 20:14; Admin Dose 30 UNITS; Start 09/17/18 at 20:00 Alprazolam (Xanax) 1 mg Q8H PRN PO ANXIETY Last administered on 09/22/18 04:49; Admin Dose 1 MG; Start 09/17/18 at 15:30 Methylprednisolone Sodium Succinate (Solu-Medrol) 60 mg Q6 IV Last administered on 6/15/19at 11:58; Admin Dose 60 MG; Start 09/18/18 at 12:00 Linagliptin (Tradjenta) 5 mg DAILY PO Last administered on 09/22/18at 08:09; Admin Dose 5 MG; Start 09/18/18 at 13:00 Metoprolol Succinate (Toprol Xl) 100 mg DAILY PO Last administered on 09/22/18at 08:10; Admin Dose 100 MG; Start 09/21/18 at 09:00 Assessment/Plan Assessment/Plan (Daily) IMP: 1. Asthma Exacerbation 2. NORBERTO 3. Leukocytosis 2/2 CS RECS: 1. Taper CS 2. Continue BDs and azithromycin LALY VYAS MD Sep 22, 2018 16:42
[2018-09-22] MEDS ORDERED: METHYLPREDNISOLONE 125 MG INJ IV SCH (21:00)
== END 2018-09-22 18:25 | disposition home or self-care (01) | DRG 202 ==
LOC: E/R 15:32 → TEL 17:27
PROVIDERS: ADMIT Internal Medicine; ATTEND Internal Medicine
PROC: 3E0F7GC Introduction of Other Therapeutic Substance into Respiratory Tract, Via Natural or Artificial Opening (ICD-10-PCS; principal; 2018-09-15)
DX: J45.901 Unspecified asthma with (acute) exacerbation (principal); J96.21 Acute and chronic respiratory failure with hypoxia; E11.8 Type 2 diabetes mellitus with unspecified complications; I11.0 Hypertensive heart disease with heart failure; E66.01 Morbid (severe) obesity due to excess calories; I50.9 Heart failure, unspecified; N40.0 Benign prostatic hyperplasia without lower urinary tract symptoms; E78.5 Hyperlipidemia, unspecified; E87.6 Hypokalemia; Z68.33 Body mass index [BMI] 33.0-33.9, adult
CPT/HCPCS: 36415; 36600; 71045; 80048; 80053; 80061; 81003; 82150; 82550; 82553; 82803; 82962; 83036; 83605; 83690; 83735; 83880; 84100; 84484; 85025; 85610; 85730; 87086; 87400; 93005; 93306; 94640; 94644; 94660; 94664; J1650; J1815; J1940; J2060; J2270; J2920; J2930